=== PATIENT | male | born 1985 | race Caucasian/White ===

== ENCOUNTER 2019-02-27 17:00 | Emergency (ER) | payer MEDICAID, OTHER ==
--- NOTE | 2019-02-27 17:31 | EDM.PDOC ---
ED HPI GENERAL MEDICAL PROBLEM - General Chief Complaint: Chest Pain Stated Complaint: COUGH, CHEST PAIN Time Seen by Provider: 02/27/19 17:10 Source of Information: Reports: Patient History Limitations: Reports: No Limitations - History of Present Illness INITIAL COMMENTS - FREE TEXT/NARRATIVE: HISTORY AND PHYSICAL: History of present illness: He shouldn't is a 33-year-old male presenting to the emergency room for chief complaint of cough. Patient states that one week ago he was sick with some congestion, which has now went into his lower respiratory tract. Patient states that yesterday he started coughing a productive green cough and gets lightheaded during cough attacks. He denies being around anybody who is sick. He reports slight runny nose and shortness of breath. He is a type I diabetic with an insulin pump. He denies current congestion, headache, sore throat, abdominal pain. Patient denies any fever, chills, headache, change in vision, syncope or near syncope. Denies any chest pain or back pain. Denies any abdominal pain, nausea, vomiting, diarrhea, constipation or dysuria. Has not noted any blood in urine or stool. Patient has been eating and drinking appropriately. Review of systems: As per history of present illness and below otherwise all systems reviewed and negative. Past medical history: As per history of present illness and as reviewed below otherwise noncontributory. Surgical history: As per history of present illness and as reviewed below otherwise noncontributory. Social history: See social history for further information Family history: As per history of present illness and as reviewed below otherwise noncontributory. Physical exam: General: She is a well-nourished and well-developed 33-year-old male. Alert and orientated. Nontoxic in appearance and in no acute distress. Vital signs are stable and have been reviewed by me. HEENT: Atraumatic, normocephalic, pupils equal and reactive bilaterally, negative for conjunctival pallor or scleral icterus, mucous membranes moist, TMs normal bilaterally, throat clear, neck supple, nontender, trachea midline. No drooling or trismus noted. No meningeal signs. No hot potato voice noted. Lungs: Bilateral inspiratory and expiratory wheezing, slightly diminished at the bases, chest nontender. Heart: S1S2, regular rate and rhythm without overt murmur Abdomen: Soft, nondistended, nontender. Negative for masses or hepatosplenomegaly. Negative for costovertebral tenderness. Skin: Intact, warm, dry. No lesions or rashes noted. Extremities: Atraumatic, moves all extremities per self without difficulty or deficits, negative for cords or calf pain. Neurovascular unremarkable. Neuro: Awake, alert, oriented. Cranial nerves II through XII unremarkable. Cerebellum unremarkable. Motor and sensory unremarkable throughout. Exam nonfocal. Notes: Lab work is unremarkable. Chest x-ray shows no acute findings. Due to the longevity of his symptoms and physical examination and will treat with Z-Kunal. We discussed monitoring his blood sugars more closely while he is recovering. Supportive care measures were reviewed and discussed. Voices understanding and is agreeable to plan of care. Denies any further questions or concerns at this time. Diagnostics: CBC, CMP, chest x-ray Therapeutics: DuoNeb Prescription: Zpak Impression: Bronchitis Plan: 1. Please use Tylenol and/or Ibuprofen as needed for pain and fever management. 2. Get plenty of Rest. Encourage fluids to prevent dehydration. 3. Please follow up with your primary care provider. Return to the ED as needed as discussed. Definitive disposition and diagnosis as appropriate pending reevaluation and review of above. Chest Pain Score (Numeric/FACES): 2 - Related Data Allergies Allergy/AdvReac Type Severity Reaction Status Date / Time No Known Allergies Allergy Verified 02/27/19 17:29 Home Meds: Home Meds Sertraline [Zoloft] 25 mg PO QAM 03/30/14 [History] Insulin Glarg,Human.Rec.Analog [LantUS Solostar] 3 unit SUBCUT DAILY 05/29/16 [ History] Past Medical History - Past Health History Medical/Surgical History: Denies Medical/Surgical History HEENT History: Reports: None Cardiovascular History: Reports: None Respiratory History: Reports: Asthma Other Respiratory History: childhood asthma Gastrointestinal History: Reports: None Genitourinary History: Reports: None Neurological History: Reports: None Psychiatric History: Reports: None Endocrine/Metabolic History: Reports: Other (See Below) Other Endocrine/Metabolic History: diabetes Dermatologic History: Reports: None - Infectious Disease History Infectious Disease History: Reports: Chicken Pox - Past Surgical History HEENT Surgical History: Reports: None Other Male Surgeries/Procedures: undescended testicle,right Social & Family History - Family History Family Medical History: Noncontributory ED ROS GENERAL - Review of Systems Review Of Systems: ROS reveals no pertinent complaints other than HPI. ED EXAM, GENERAL - Physical Exam Exam: See Below (See dictation) Course - Vital Signs Last Recorded V/S: Last Vital Signs Temp 97.3 F 02/27/19 17:30 Pulse 87 02/27/19 17:30 Resp 15 02/27/19 17:30 BP 110/70 02/27/19 17:30 Pulse Ox 97 02/27/19 17:30 - Orders/Labs/Meds Orders: Active Orders 24 hr Category Date Time Status RT Aerosol Therapy [RC] ASDIRECTED Care 02/27/19 17:36 Active Labs: Laboratory Tests 02/27/19 02/27/19 02/27/19 Range/Units 17:41 17:55 17:55 WBC 10.77 (4.0-11.0) K/uL RBC 5.29 (4.50-5.90) M/uL Hgb 15.9 (13.0-17.0) g/dL Hct 45.5 (38.0-50.0) % MCV 86.0 (80.0-98.0) fL MCH 30.1 (27.0-32.0) pg MCHC 34.9 (31.0-37.0) g/dL RDW Std Deviation 41.1 (28.0-62.0) fl RDW Coeff of Martinez 13 (11.0-15.0) % Plt Count 211 (150-400) K/uL MPV 8.60 (7.40-12.00) fL Neut % (Auto) 78.2 (48.0-80.0) % Lymph % (Auto) 16.0 (16.0-40.0) % [place] % (Auto) 5.1 (0.0-15.0) % Eos % (Auto) 0.5 (0.0-7.0) % Baso % (Auto) 0.2 (0.0-1.5) % Neut # (Auto) 8.4 H (1.4-5.7) K/uL Lymph # (Auto) 1.7 (0.6-2.4) K/uL [place] # (Auto) 0.6 (0.0-0.8) K/uL Eos # (Auto) 0.1 (0.0-0.7) K/uL Baso # (Auto) 0.0 (0.0-0.1) K/uL Nucleated RBC % 0.0 /100WBC Nucleated RBCs # 0 K/uL Sodium 137 (136-148) mmol/L Potassium 3.8 (3.5-5.1) mmol/L Chloride 100 (98-107) mmol/L Carbon Dioxide 27.8 (21.0-32.0) mmol/L BUN 6 L (7.0-18.0) mg/dL Creatinine 0.9 (0.8-1.3) mg/dL Est Cr Clr Drug Dosing 129.71 mL/min Estimated GFR (MDRD) > 60.0 ml/min Glucose 168 H (74-106) mg/dL POC Glucose 156 H (60-110) mg/dL Calcium 8.9 (8.5-10.1) mg/dL Total Bilirubin 0.4 (0.2-1.0) mg/dL AST 13 L (15-37) IU/L ALT 17 (14-63) IU/L Alkaline Phosphatase 59 (46-116) U/L Total Protein 7.3 (6.4-8.2) g/dL Albumin 3.5 (3.4-5.0) g/dL Globulin 3.8 (2.6-4.0) g/dL Albumin/Globulin Ratio 0.9 (0.9-1.6) Meds: Medications Discontinued Medications Generic Name Dose Route Start Last Admin Trade Name Freq PRN Reason Stop Dose Admin Albuterol/Ipratropium 3 ml 02/27/19 17:36 02/27/19 17:50 Duoneb 3.0-0.5 Mg/3 Ml NEB 02/27/19 17:37 3 ml ONETIME ONE Administration Departure - Departure Time of Disposition: 18:44 Disposition: Home, Self-Care 01 Clinical Impression: Bronchitis - Discharge Information Instructions: Upper Respiratory Infection, Adult, [id number] Referrals: PCP,Unknown [Primary Care Provider] - Forms: ED Department Discharge Additional Instructions: The following information is given to patients seen in the emergency department who are being discharged to home. This information is to outline your options for follow-up care. We provide all patients seen in our emergency department with a follow-up referral. The need for follow-up, as well as the timing and circumstances, are variable depending upon the specifics of your emergency department visit. If you don't have a primary care physician on staff, we will provide you with a referral. We always advise you to contact your personal physician following an emergency department visit to inform them of the circumstance of the visit and for follow-up with them and/or the need for any referrals to a consulting specialist. The emergency department will also refer you to a specialist when appropriate. This referral assures that you have the opportunity for follow-up care with a specialist. All of these measure are taken in an effort to provide you with optimal care, which includes your follow-up. Under all circumstances we always encourage you to contact your private physician who remains a resource for coordinating your care. When calling for follow-up care, please make the office aware that this follow-up is from your recent emergency room visit. If for any reason you are refused follow-up, please contact the [facility] Emergency Department at and asked to speak to the emergency department charge nurse. [facility] [address] [place] [address] [place] [address] 1. Please use Tylenol and/or Ibuprofen as needed for pain and fever management. 2. Get plenty of Rest. Encourage fluids to prevent dehydration. 3. Continue to monitor blood sugars routinely. 4. Please follow up with your primary care provider. Return to the ED as needed as discussed. - My Orders Last 24 Hours: My Active Orders 02/27/19 17:36 RT Aerosol Therapy [RC] ASDIRECTED - Assessment/Plan Last 24 Hours: My Active Orders 02/27/19 17:36 RT Aerosol Therapy [RC] ASDIRECTED
[2019-02-27] MEDS ORDERED: Albuterol/Ipratropium 3.0-0.5 MG/3 ML Neb Soln NEB ONE (17:36)
[2019-02-27 18:21] LABS: BLOOD UREA NITROGEN,BUN 6 mg/dL (7.0-18.0); CARBON DIOXIDE,CO2 27.8 mmol/L (21.0-32.0); CHLORIDE,CL 100 mmol/L (98-107); GLUCOSE RANDOM 168 mg/dL (74-106); POTASSIUM,K 3.8 mmol/L (3.5-5.1); SODIUM,NA 137 mmol/L (136-148)
--- NOTE | 2019-02-27 18:34 | CR ---
INDICATION: Two-day history of cough TECHNIQUE: Chest 2 views. COMPARISON: None FINDINGS: Cardiovascular and mediastinum: Heart size and vasculature are normal in caliber and appearance. Mediastinum is within normal limits. Lungs and pleural spaces: Lungs are clear. No sign of infiltrate or mass. No sign of pleural effusion. No pneumothorax. Bones and soft tissues: There is a tiny metallic density within the left anterior chest wall at the level of the lower ribs. IMPRESSION: No sign of acute disease. Dictated by Chari Pendleton MD @ Feb 27 2019 6:33PM Signed by Dr. Chari Pendleton @ Feb 27 2019 6:33PM
[2019-02-27 18:54] VITALS: BP 105/68; PULSE 95
== END 2019-02-27 18:54 | disposition home or self-care (01) ==
LOC: MW.ED 17:00
DX: J40 Bronchitis, not specified as acute or chronic (principal); E11.9 Type 2 diabetes mellitus without complications; Z79.4 Long term (current) use of insulin
CPT/HCPCS: 71046; 71046-26; 80053; 82962; 85025; 94640; 99283; 99284-25; J7620-GY

== ENCOUNTER 2019-03-09 13:13 | Emergency (ER) | payer SELFPAY ==
--- NOTE | 2019-03-09 13:30 | EDM.PDOC ---
ED HPI GENERAL MEDICAL PROBLEM - General Chief Complaint: Diabetic Complaint Stated Complaint: LOW BLOOD SUGAR Time Seen by Provider: 03/09/19 13:27 - History of Present Illness INITIAL COMMENTS - FREE TEXT/NARRATIVE: HISTORY AND PHYSICAL: History of present illness: Patient 33-year-old white male with history of diabetes or presents with a concern of elevated blood sugar generalized weakness he also has history of anxiety he states his blood sugars been running 250-300 including as recently as this a.m. in spite of adjustments made as been no fever chills nausea vomiting or other complaints Review of systems: As per history of present illness and below otherwise all systems reviewed and negative. Past medical history: As per history of present illness and as reviewed below otherwise noncontributory. Surgical history: As per history of present illness and as reviewed below otherwise noncontributory. Social history: No reported history of drug or alcohol abuse. Family history: As per history of present illness and as reviewed below otherwise noncontributory. Physical exam: HEENT: Atraumatic, normocephalic, pupils reactive, negative for conjunctival pallor or scleral icterus, mucous membranes dry, throat clear, neck supple, nontender, trachea midline. Lungs: Clear to auscultation, breath sounds equal bilaterally, chest nontender. Heart: S1S2, regular, negative for clicks, rubs, or JVD. Abdomen: Soft, nondistended, nontender. Negative for masses or hepatosplenomegaly. Negative for costovertebral tenderness. Pelvis: Stable nontender. Genitourinary: Deferred. Rectal: Deferred. Extremities: Atraumatic, negative for cords or calf pain. Neurovascular unremarkable. Neuro: Awake, alert, oriented. Cranial nerves II through XII unremarkable. Cerebellum unremarkable. Motor and sensory unremarkable throughout. Exam nonfocal. Diagnostics: CBC CMP ABG UA EKG chest x-ray Therapeutics: Saline 1 L bolus Impression: #1 hyperglycemia #2 history of type 1 diabetes #3 dehydration #4 generalized weakness Definitive disposition and diagnosis as appropriate pending reevaluation and review of above. chest/back Pain Score (Numeric/FACES): 3 - Related Data Allergies Allergy/AdvReac Type Severity Reaction Status Date / Time No Known Allergies Allergy Verified 03/09/19 13:21 Home Meds: Home Meds Sertraline [Zoloft] 25 mg PO QAM 03/30/14 [History] Insulin Aspart [NovoLOG] 1 unit INJECT ASDIRECTED 03/09/19 [History] LORazepam 0.5 mg PO TID 03/09/19 [History] Past Medical History - Past Health History Medical/Surgical History: Denies Medical/Surgical History HEENT History: Reports: None Cardiovascular History: Reports: None Respiratory History: Reports: Asthma Other Respiratory History: childhood asthma Gastrointestinal History: Reports: None Genitourinary History: Reports: None Musculoskeletal History: Reports: None Neurological History: Reports: None Psychiatric History: Reports: None Endocrine/Metabolic History: Reports: Diabetes, Type I Other Endocrine/Metabolic History: diabetes Insulin Pump Model and Dining Room Manager: Spor [id number] Hematologic History: Reports: None Immunologic History: Reports: None Oncologic (Cancer) History: Reports: None Dermatologic History: Reports: None - Infectious Disease History Infectious Disease History: Reports: Chicken Pox - Past Surgical History Head Surgeries/Procedures: Reports: None HEENT Surgical History: Reports: None Cardiovascular Surgical History: Reports: None Respiratory Surgical History: Reports: None GI Surgical History: Reports: None Male Surgical History: Reports: Other (See Below) Other Male Surgeries/Procedures: undescended testicle,right Endocrine Surgical History: Reports: None Neurological Surgical History: Reports: None Musculoskeletal Surgical History: Reports: None Oncologic Surgical History: Reports: None Dermatological Surgical History: Reports: None Social & Family History - Family History Family Medical History: Noncontributory - Tobacco Use Smoking Status *Q: Current Every Day Smoker Years of Tobacco use: 20 Packs/Tins Daily: 0.5 - Caffeine Use Caffeine Use: Reports: None - Recreational Drug Use Recreational Drug Use: No ED ROS GENERAL - Review of Systems Review Of Systems: ROS reveals no pertinent complaints other than HPI. ED EXAM GENERAL NO PERIP PULSE - Physical Exam Exam: See Below (See dictation) Course - Vital Signs Last Recorded V/S: Last Vital Signs Temp 35.4 C 03/09/19 13:19 Pulse 101 H 03/09/19 13:19 Resp 18 03/09/19 13:19 BP 119/93 H 03/09/19 13:19 Pulse Ox 93 L 03/09/19 13:19 - Orders/Labs/Meds Orders: Active Orders 24 hr Category Date Time Status EKG Documentation Completion [RC] STAT Care 03/09/19 13:31 Active Sodium Chloride 0.9% [Normal Saline] 1,000 ml Med 03/09/19 13:31 Active IV STAT Medication Orders Sodium Chloride (Normal Saline) 1,000 mls @ 999 mls/hr IV STAT ONE Stop: 03/09/19 14:31 Last Admin: 03/09/19 13:47 Dose: 999 mls/hr Labs: Laboratory Tests 03/09/19 03/09/19 03/09/19 Range/Units 13:35 13:35 13:40 WBC 11.88 H (4.0-11.0) K/uL RBC 5.57 (4.50-5.90) M/uL Hgb 16.6 (13.0-17.0) g/dL Hct 48.4 (38.0-50.0) % MCV 86.9 (80.0-98.0) fL MCH 29.8 (27.0-32.0) pg MCHC 34.3 (31.0-37.0) g/dL RDW Std Deviation 41.4 (28.0-62.0) fl RDW Coeff of Martinez 13 (11.0-15.0) % Plt Count 207 (150-400) K/uL MPV 9.00 (7.40-12.00) fL Neut % (Auto) 81.6 H (48.0-80.0) % Lymph % (Auto) 12.6 L (16.0-40.0) % [place] % (Auto) 5.1 (0.0-15.0) % Eos % (Auto) 0.4 (0.0-7.0) % Baso % (Auto) 0.3 (0.0-1.5) % Neut # (Auto) 9.7 H (1.4-5.7) K/uL Lymph # (Auto) 1.5 (0.6-2.4) K/uL [place] # (Auto) 0.6 (0.0-0.8) K/uL Eos # (Auto) 0.1 (0.0-0.7) K/uL Baso # (Auto) 0.0 (0.0-0.1) K/uL Nucleated RBC % 0.0 /100WBC Nucleated RBCs # 0 K/uL ABG pH 7.389 (7.35-7.45) ABG pCO2 37 (35-45) mmHG ABG pO2 76 (75-100) mmHG ABG HCO3 22 (22-26) mEq/L ABG Total CO2 19.4 ABG Base Excess -2.2 L (-2.0-2.0) Sodium 137 (136-148) mmol/L Potassium 4.2 (3.5-5.1) mmol/L Chloride 98 (98-107) mmol/L Carbon Dioxide 25.0 (21.0-32.0) mmol/L BUN 15 (7.0-18.0) mg/dL Creatinine 1.0 (0.8-1.3) mg/dL Est Cr Clr Drug Dosing 117.48 mL/min Estimated GFR (MDRD) > 60.0 ml/min Glucose 317 H (74-106) mg/dL Calcium 9.5 (8.5-10.1) mg/dL Total Bilirubin 0.9 (0.2-1.0) mg/dL AST 11 L (15-37) IU/L ALT 16 (14-63) IU/L Alkaline Phosphatase 74 (46-116) U/L Total Protein 8.3 H (6.4-8.2) g/dL Albumin 4.0 (3.4-5.0) g/dL Globulin 4.3 H (2.6-4.0) g/dL Albumin/Globulin Ratio 0.9 (0.9-1.6) Urine Color Urine Appearance Urine pH (5.0-8.0) Ur Specific [place] (1.001-1.035) Urine Protein (NEGATIVE) mg/dL Urine Glucose (UA) (NEGATIVE) mg/dL Urine Ketones (NEGATIVE) mg/dL Urine Occult Blood (NEGATIVE) Urine Nitrite (NEGATIVE) Urine Bilirubin (NEGATIVE) Urine Urobilinogen (<2.0) EU/dL Ur Leukocyte Esterase (NEGATIVE) 03/09/19 Range/Units 13:54 WBC (4.0-11.0) K/uL RBC (4.50-5.90) M/uL Hgb (13.0-17.0) g/dL Hct (38.0-50.0) % MCV (80.0-98.0) fL MCH (27.0-32.0) pg MCHC (31.0-37.0) g/dL RDW Std Deviation (28.0-62.0) fl RDW Coeff of Martinez (11.0-15.0) % Plt Count (150-400) K/uL MPV (7.40-12.00) fL Neut % (Auto) (48.0-80.0) % Lymph % (Auto) (16.0-40.0) % [place] % (Auto) (0.0-15.0) % Eos % (Auto) (0.0-7.0) % Baso % (Auto) (0.0-1.5) % Neut # (Auto) (1.4-5.7) K/uL Lymph # (Auto) (0.6-2.4) K/uL [place] # (Auto) (0.0-0.8) K/uL Eos # (Auto) (0.0-0.7) K/uL Baso # (Auto) (0.0-0.1) K/uL Nucleated RBC % /100WBC Nucleated RBCs # K/uL ABG pH (7.35-7.45) ABG pCO2 (35-45) mmHG ABG pO2 (75-100) mmHG ABG HCO3 (22-26) mEq/L ABG Total CO2 ABG Base Excess (-2.0-2.0) Sodium (136-148) mmol/L Potassium (3.5-5.1) mmol/L Chloride (98-107) mmol/L Carbon Dioxide (21.0-32.0) mmol/L BUN (7.0-18.0) mg/dL Creatinine (0.8-1.3) mg/dL Est Cr Clr Drug Dosing mL/min Estimated GFR (MDRD) ml/min Glucose (74-106) mg/dL Calcium (8.5-10.1) mg/dL Total Bilirubin (0.2-1.0) mg/dL AST (15-37) IU/L ALT (14-63) IU/L Alkaline Phosphatase (46-116) U/L Total Protein (6.4-8.2) g/dL Albumin (3.4-5.0) g/dL Globulin (2.6-4.0) g/dL Albumin/Globulin Ratio (0.9-1.6) Urine Color YELLOW Urine Appearance CLEAR Urine pH 6.0 (5.0-8.0) Ur Specific [place] 1.015 (1.001-1.035) Urine Protein NEGATIVE (NEGATIVE) mg/dL Urine Glucose (UA) >=1000 (NEGATIVE) mg/dL Urine Ketones >=80 (NEGATIVE) mg/dL Urine Occult Blood NEGATIVE (NEGATIVE) Urine Nitrite NEGATIVE (NEGATIVE) Urine Bilirubin NEGATIVE (NEGATIVE) Urine Urobilinogen 0.2 (<2.0) EU/dL Ur Leukocyte Esterase NEGATIVE (NEGATIVE) Meds: Medications Generic Name Dose Route Start Last Admin Trade Name Freq PRN Reason Stop Dose Admin Sodium Chloride 1,000 mls @ 999 mls/hr 03/09/19 13:31 03/09/19 13:47 Normal Saline IV 03/09/19 14:31 999 mls/hr STAT ONE Administration Departure - Departure Time of Disposition: 14:27 Disposition: Home, Self-Care 01 Condition: Good Clinical Impression: Encounter for medical screening examination, Diabetes, Pneumonia - Discharge Information Referrals: PCP,Unknown [Primary Care Provider] - Forms: ED Department Discharge Additional Instructions: The following information is given to patients seen in the emergency department who are being discharged to home. This information is to outline your options for follow-up care. We provide all patients seen in our emergency department with a follow-up referral. The need for follow-up, as well as the timing and circumstances, are variable depending upon the specifics of your emergency department visit. If you don't have a primary care physician on staff, we will provide you with a referral. We always advise you to contact your personal physician following an emergency department visit to inform them of the circumstance of the visit and for follow-up with them and/or the need for any referrals to a consulting specialist. The emergency department will also refer you to a specialist when appropriate. This referral assures that you have the opportunity for followup care with a specialist. All of these measure are taken in an effort to provide you with optimal care, which includes your followup. Under all circumstances we always encourage you to contact your private physician who remains a resource for coordinating your care. When calling for followup care, please make the office aware that this follow-up is from your recent emergency room visit. If for any reason you are refused follow-up, please contact the [facility] emergency department at and asked to speak to the emergency department charge nurse. Augmentin as prescribed monitor blood sugars discussed diet as discussed follow- up primary medical doctor and return as needed as discussed - My Orders Last 24 Hours: My Active Orders 03/09/19 13:31 EKG Documentation Completion [RC] STAT Sodium Chloride 0.9% [Normal Saline] 1,000 ml IV STAT - Assessment/Plan Last 24 Hours: My Active Orders 03/09/19 13:31 EKG Documentation Completion [RC] STAT Sodium Chloride 0.9% [Normal Saline] 1,000 ml IV STAT
[2019-03-09] MEDS ORDERED: Sodium Chloride 0.9% 1,000 ML IV ONE (13:31)
[2019-03-09 14:18] LABS: BLOOD UREA NITROGEN,BUN 15 mg/dL (7.0-18.0); CHLORIDE,CL 98 mmol/L (98-107); GLUCOSE RANDOM 317 mg/dL (74-106); POTASSIUM,K 4.2 mmol/L (3.5-5.1); SODIUM,NA 137 mmol/L (136-148)
--- NOTE | 2019-03-09 14:20 | CR ---
Chest: Frontal view of the chest was obtained. Comparison: Prior chest x-ray of 02/27/19. Small metallic foreign body is projected within the anterior left chest wall. This is stable from prior chest x-ray. Heart size and mediastinum are normal. Slight parenchymal change is noted within the left base. Bony structures are grossly intact. Impression: 1. Slight parenchymal change within the left base. Small area of pneumonia is possible if patient has infectious symptoms. 2. Stable foreign body within the anterior left chest wall. 3. No additional abnormality is identified. Diagnostic code #3 MTDD
[2019-03-09] MEDS ORDERED: cefTRIAXone 1 GM in Premix Bag 1 BAG IV ONE (14:31)
[2019-03-09 15:49] VITALS: BP 110/71; PULSE 65
== END 2019-03-09 15:49 | disposition home or self-care (01) ==
LOC: MW.ED 13:13
DX: E10.65 Type 1 diabetes mellitus with hyperglycemia (principal); J18.9 Pneumonia, unspecified organism; E86.0 Dehydration; F17.210 Nicotine dependence, cigarettes, uncomplicated; Z79.4 Long term (current) use of insulin; Z79.899 Other long term (current) drug therapy
CPT/HCPCS: 36415; 36600; 71045; 80053; 81003; 82803; 82962; 85025; 93005; 96361; 96365; 99285; J0696; J7040; 99284

== ENCOUNTER 2019-04-22 09:51 | Emergency (ER) | payer OTHER ==
[2019-04-22] MEDS ORDERED: Albuterol/Ipratropium 3.0-0.5 MG/3 ML Neb Soln NEB ONE (10:12)
--- NOTE | 2019-04-22 10:28 | EDM.PDOC ---
ED HPI GENERAL MEDICAL PROBLEM - General Chief Complaint: Respiratory Problem Stated Complaint: TROUBLE BREATHING Time Seen by Provider: 04/22/19 09:53 Source of Information: Reports: Patient History Limitations: Reports: No Limitations - History of Present Illness INITIAL COMMENTS - FREE TEXT/NARRATIVE: HISTORY AND PHYSICAL: History of present illness: Patient is a 33-year-old male who presents to the ED today with concern of "burning in his lungs" from coughing and generalized body aches since this morning. Patient states he has not taken anything for his symptoms. Patient does seek does smoke about half pack of cigarettes a day and has so for several years. Patient states that he has a history of type 1 diabetes and has been swollen pump but states that his sugars have been "normal for him. Patient denies any other symptoms or concerns at this time. Patient denies fever, chills, chest pain, shortness of breath. Denies headache, neck stiff ness, change in vision, syncope, or near syncope. Denies nausea, vomiting, abdominal pain, diarrhea, constipation, or dysuria. Has not noted any blood in urine or stool. Patient has been eating and drinking appropriately. Review of systems: As per history of present illness and below otherwise all systems reviewed and negative. Past medical history: As per history of present illness and as reviewed below otherwise noncontributory. Surgical history: As per history of present illness and as reviewed below otherwise noncontributory. Social history: See social history for further information Family history: As per history of present illness and as reviewed below otherwise noncontributory. Physical exam: General: Patient is alert, oriented, and in no acute distress. Patient sitting comfortably on exam table. HEENT: Atraumatic, normocephalic, pupils equal and reactive bilaterally, negative for conjunctival pallor or scleral icterus, mucous membranes moist, TMs normal bilaterally, throat clear, neck supple, nontender, trachea midline. No drooling or trismus noted. No meningeal signs. No hot potato voice noted. Lungs: Mild wheezing to auscultation to bilateral lung bases, breath sounds equal bilaterally, chest nontender. Heart: S1S2, regular rate and rhythm without overt murmur Abdomen: Soft, nondistended, nontender. Negative for masses or hepatosplenomegaly. Negative for costovertebral tenderness. Pelvis: Stable nontender. Genitourinary: Deferred. Rectal: Deferred. Skin: Intact, warm, dry. No lesions or rashes noted. Extremities: Atraumatic, negative for cords or calf pain. Neurovascular unremarkable. Neuro: Awake, alert, oriented. Cranial nerves II through XII unremarkable. Cerebellum unremarkable. Motor and sensory unremarkable throughout. Exam nonfocal. Notes: Discussed the importance for follow-up with primary care provider. Voices understanding and is agreeable to plan of care. Denies any further questions or concerns at this time. Diagnostics: CBC, CMP, UA, EKG, chest x-ray, influenza, bedside glucose Therapeutics: Duoneb Prescription: Medrol dose pack, Proair Impression: Tracheobronchitis H/O T1DM Plan: 1. Take medication as prescribed. You can alternate ibuprofen and Tylenol as directed for pain and discomfort. 2. Follow-up with your primary care provider as discussed. Return to the ED as needed and as discussed. Definitive disposition and diagnosis as appropriate pending reevaluation and review of above. Chest/Lung Pain Score (Numeric/FACES): 8 - Related Data Allergies Allergy/AdvReac Type Severity Reaction Status Date / Time No Known Allergies Allergy Verified 04/22/19 10:03 Home Meds: Home Meds Sertraline [Zoloft] 100 mg PO DAILY 03/30/14 [History] Insulin Aspart [NovoLOG] 1 unit INJECT ASDIRECTED 03/09/19 [History] LORazepam 0.5 mg PO ASDIRECTED 03/09/19 [History] Past Medical History - Past Health History Medical/Surgical History: Denies Medical/Surgical History HEENT History: Reports: None Cardiovascular History: Reports: None Respiratory History: Reports: Asthma Other Respiratory History: childhood asthma Gastrointestinal History: Reports: None Genitourinary History: Reports: None Musculoskeletal History: Reports: None Neurological History: Reports: None Psychiatric History: Reports: None Endocrine/Metabolic History: Reports: Diabetes, Type I Other Endocrine/Metabolic History: diabetes 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[employer] Hematologic History: Reports: None Immunologic History: Reports: None Oncologic (Cancer) History: Reports: None Dermatologic History: Reports: None - Infectious Disease History Infectious Disease History: Reports: Chicken Pox - Past Surgical History Head Surgeries/Procedures: Reports: None HEENT Surgical History: Reports: None Cardiovascular Surgical History: Reports: None Respiratory Surgical History: Reports: None GI Surgical History: Reports: None Male Surgical History: Reports: Other (See Below) Other Male Surgeries/Procedures: undescended testicle,right Endocrine Surgical History: Reports: None Neurological Surgical History: Reports: None Musculoskeletal Surgical History: Reports: None Oncologic Surgical History: Reports: None Dermatological Surgical History: Reports: None Social & Family History - Family History Family Medical History: Noncontributory - Tobacco Use Smoking Status *Q: Current Every Day Smoker Years of Tobacco use: 21 Packs/Tins Daily: 1 - Caffeine Use Caffeine Use: Reports: None - Recreational Drug Use Recreational Drug Use: No ED ROS GENERAL - Review of Systems Review Of Systems: Comprehensive ROS is negative, except as noted in HPI. ED EXAM, GENERAL - Physical Exam Exam: See Below (see dictation) Course - Vital Signs Last Recorded V/S: Last Vital Signs Temp 96.4 F 04/22/19 10:01 Pulse 63 04/22/19 10:01 Resp 16 04/22/19 10:01 BP 113/70 04/22/19 10:01 Pulse Ox 98 04/22/19 10:01 - Orders/Labs/Meds Orders: Active Orders 24 hr Category Date Time Status EKG Documentation Completion [RC] STAT Care 04/22/19 10:11 Active Glucose [Blood Glucose Check, Bedside] [RC] ONETIME Care 04/22/19 10:12 Active RT Aerosol Therapy [RC] ASDIRECTED Care 04/22/19 10:12 Active UA RFX YESSICA AND CULT IF INDIC [URIN] Stat Lab 04/22/19 10:11 Ordered Labs: Laboratory Tests 04/22/19 04/22/19 04/22/19 Range/Units 10:41 10:42 10:42 WBC 4.74 (4.0-11.0) K/uL RBC 5.16 (4.50-5.90) M/uL Hgb 15.0 (13.0-17.0) g/dL Hct 44.2 (38.0-50.0) % MCV 85.7 (80.0-98.0) fL MCH 29.1 (27.0-32.0) pg MCHC 33.9 (31.0-37.0) g/dL RDW Std Deviation 40.3 (28.0-62.0) fl RDW Coeff of [place] 13 (11.0-15.0) % Plt Count 170 (150-400) K/uL MPV 9.00 (7.40-12.00) fL Neut % (Auto) 47.3 L (48.0-80.0) % Lymph % (Auto) 38.6 (16.0-40.0) % [place] % (Auto) 11.4 (0.0-15.0) % Eos % (Auto) 1.9 (0.0-7.0) % Baso % (Auto) 0.8 (0.0-1.5) % Neut # (Auto) 2.2 (1.4-5.7) K/uL Lymph # (Auto) 1.8 (0.6-2.4) K/uL [place] # (Auto) 0.5 (0.0-0.8) K/uL Eos # (Auto) 0.1 (0.0-0.7) K/uL Baso # (Auto) 0.0 (0.0-0.1) K/uL Nucleated RBC % 0.0 /100WBC Nucleated RBCs # 0 K/uL Sodium 136 (136-148) mmol/L Potassium 3.9 (3.5-5.1) mmol/L Chloride 101 (98-107) mmol/L Carbon Dioxide 28.2 (21.0-32.0) mmol/L BUN 9 (7.0-18.0) mg/dL Creatinine 0.9 (0.8-1.3) mg/dL Est Cr Clr Drug Dosing 130.53 mL/min Estimated GFR (MDRD) > 60.0 ml/min Glucose 278 H (74-106) mg/dL POC Glucose 259 H (60-110) mg/dL Calcium 8.9 (8.5-10.1) mg/dL Total Bilirubin 0.4 (0.2-1.0) mg/dL AST 18 (15-37) IU/L ALT 28 (14-63) IU/L Alkaline Phosphatase 51 (46-116) U/L Total Protein 7.4 (6.4-8.2) g/dL Albumin 3.8 (3.4-5.0) g/dL Globulin 3.6 (2.6-4.0) g/dL Albumin/Globulin Ratio 1.1 (0.9-1.6) Meds: Medications Discontinued Medications Generic Name Dose Route Start Last Admin Trade Name Radha PRN Reason Stop Dose Admin Albuterol/Ipratropium 3 ml 04/22/19 10:12 04/22/19 10:17 Duoneb 3.0-0.5 Mg/3 Ml NEB 04/22/19 10:13 3 ml ONETIME ONE Administration Departure - Departure Time of Disposition: 11:44 Disposition: Home, Self-Care 01 Clinical Impression: Tracheobronchitis - Discharge Information Referrals: Hilda Vance STATE EDITOR [Primary Care Provider] - Forms: ED Department Discharge Additional Instructions: The following information is given to patients seen in the emergency department who are being discharged to home. This information is to outline your options for follow-up care. We provide all patients seen in our emergency department with a follow-up referral. The need for follow-up, as well as the timing and circumstances, are variable depending upon the specifics of your emergency department visit. If you don't have a primary care physician on staff, we will provide you with a referral. We always advise you to contact your personal physician following an emergency department visit to inform them of the circumstance of the visit and for follow-up with them and/or the need for any referrals to a consulting specialist. The emergency department will also refer you to a specialist when appropriate. This referral assures that you have the opportunity for follow-up care with a specialist. All of these measure are taken in an effort to provide you with optimal care, which includes your follow-up. Under all circumstances we always encourage you to contact your private physician who remains a resource for coordinating your care. When calling for follow-up care, please make the office aware that this follow-up is from your recent emergency room visit. If for any reason you are refused follow-up, please contact the [facility] Emergency Department at and asked to speak to the emergency department charge nurse. [facility] [address] [place] [id number] [address] [id number] 1. Take medication as prescribed. You can alternate ibuprofen and Tylenol as directed for pain and discomfort. 2. Follow-up with your primary care provider as discussed. Return to the ED as needed and as discussed. - My Orders Last 24 Hours: My Active Orders 04/22/19 10:11 EKG Documentation Completion [RC] STAT UA RFX YESSICA AND CULT IF INDIC [URIN] Stat 04/22/19 10:12 Glucose [Blood Glucose Check, Bedside] [RC] ONETIME RT Aerosol Therapy [RC] ASDIRECTED - Assessment/Plan Last 24 Hours: My Active Orders 04/22/19 10:11 EKG Documentation Completion [RC] STAT UA RFX YESSICA AND CULT IF INDIC [URIN] Stat 04/22/19 10:12 Glucose [Blood Glucose Check, Bedside] [RC] ONETIME RT Aerosol Therapy [RC] ASDIRECTED
--- NOTE | 2019-04-22 10:49 | CR ---
EXAM DATE: 04/22/19 PATIENT'S AGE: 33 Chest: Two views of the chest were obtained. Comparison: Prior chest x-ray 03/09/19. Heart size and mediastinum are normal. Lungs are clear. Bony structures are unremarkable for the patient's age. Impression: 1. Nothing acute is seen on two view chest x-ray. Diagnostic code #1 This report was dictated in [place] Standard Time Report Signed by Proxy. [facility]
[2019-04-22 11:12] LABS: BLOOD UREA NITROGEN,BUN 9 mg/dL (7.0-18.0); CARBON DIOXIDE,CO2 28.2 mmol/L (21.0-32.0); CHLORIDE,CL 101 mmol/L (98-107); GLUCOSE RANDOM 278 mg/dL (74-106); POTASSIUM,K 3.9 mmol/L (3.5-5.1); SODIUM,NA 136 mmol/L (136-148)
[2019-04-22 12:00] VITALS: BP 137/68; PULSE 71
== END 2019-04-22 12:01 | disposition home or self-care (01) ==
LOC: MW.ED 09:51
DX: J40 Bronchitis, not specified as acute or chronic (principal); E10.9 Type 1 diabetes mellitus without complications; F17.210 Nicotine dependence, cigarettes, uncomplicated; Z79.4 Long term (current) use of insulin
CPT/HCPCS: 36415; 71046; 71046-26; 80053; 82962; 85025; 87804; 93005; 94640; 99284-25; J7620-GY

== ENCOUNTER 2019-04-28 00:22 | Emergency (ER) | payer MEDICAID ==
--- NOTE | 2019-04-28 00:44 | EDM.PDOC ---
ED HPI GENERAL MEDICAL PROBLEM - General Chief Complaint: Behavioral/Psych Stated Complaint: MENTAL ISSUES Time Seen by Provider: 04/28/19 00:38 - History of Present Illness INITIAL COMMENTS - FREE TEXT/NARRATIVE: HISTORY AND PHYSICAL: History of present illness: Patient 33-year-old white male presents with a concern of medication refill he states he has a scheduled appointment Saturday with his doctor Review of systems: As per history of present illness and below otherwise all systems reviewed and negative. Past medical history: As per history of present illness and as reviewed below otherwise noncontributory. Surgical history: As per history of present illness and as reviewed below otherwise noncontributory. Social history: No reported history of drug or alcohol abuse. Family history: As per history of present illness and as reviewed below otherwise noncontributory. Physical exam: HEENT: Atraumatic, normocephalic, pupils reactive, negative for conjunctival pallor or scleral icterus, mucous membranes moist, throat clear, neck supple, nontender, trachea midline. Lungs: Clear to auscultation, breath sounds equal bilaterally, chest nontender. Heart: S1S2, regular, negative for clicks, rubs, or JVD. Abdomen: Soft, nondistended, nontender. Negative for masses or hepatosplenomegaly. Negative for costovertebral tenderness. Pelvis: Stable nontender. Genitourinary: Deferred. Rectal: Deferred. Extremities: Atraumatic, negative for cords or calf pain. Neurovascular unremarkable. Neuro: Awake, alert, oriented. Cranial nerves II through XII unremarkable. Cerebellum unremarkable. Motor and sensory unremarkable throughout. Exam nonfocal. Diagnostics: None Therapeutics: Zoloft 200 mg by mouth Impression: #1 medication refill #2 history of anxiety/depression Definitive disposition and diagnosis as appropriate pending reevaluation and review of above. no pain Pain Score (Numeric/FACES): 0 - Related Data Allergies Allergy/AdvReac Type Severity Reaction Status Date / Time No Known Allergies Allergy Verified 04/24/19 00:18 Home Meds: Home Meds Sertraline [Zoloft] 200 mg PO DAILY 03/30/14 [History] Insulin Aspart [NovoLOG] 1 unit INJECT ASDIRECTED 03/09/19 [History] LORazepam 0.5 mg PO TID PRN 03/09/19 [History] Albuterol Sulfate [Proair Hfa] 8.5 gm IH Q8HR PRN #1 [email or web address] 04/22/19 [Rx] Past Medical History - Past Health History Medical/Surgical History: Denies Medical/Surgical History HEENT History: Reports: None Cardiovascular History: Reports: None Respiratory History: Reports: Asthma Other Respiratory History: childhood asthma Gastrointestinal History: Reports: None Genitourinary History: Reports: None Musculoskeletal History: Reports: None Neurological History: Reports: None Psychiatric History: Reports: Anxiety Endocrine/Metabolic History: Reports: Diabetes, Type I Other Endocrine/Metabolic History: on insulin pump 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 Hematologic History: Reports: None Immunologic History: Reports: None Oncologic (Cancer) History: Reports: None Dermatologic History: Reports: None - Infectious Disease History Infectious Disease History: Reports: Chicken Pox - Past Surgical History Head Surgeries/Procedures: Reports: None HEENT Surgical History: Reports: None Cardiovascular Surgical History: Reports: None Respiratory Surgical History: Reports: None GI Surgical History: Reports: None Male Surgical History: Reports: Other (See Below) Other Male Surgeries/Procedures: undescended testicle,right Endocrine Surgical History: Reports: None Neurological Surgical History: Reports: None Musculoskeletal Surgical History: Reports: None Oncologic Surgical History: Reports: None Dermatological Surgical History: Reports: None Social & Family History - Family History Family Medical History: Noncontributory - Tobacco Use Smoking Status *Q: Current Every Day Smoker Years of Tobacco use: 21 Packs/Tins Daily: 0.5 - Caffeine Use Caffeine Use: Reports: None - Recreational Drug Use Recreational Drug Use: No ED ROS GENERAL - Review of Systems Review Of Systems: Comprehensive ROS is negative, except as noted in HPI. ED EXAM, GENERAL - Physical Exam Exam: See Below (See dictation) Course - Vital Signs Last Recorded V/S: Last Vital Signs Temp 35.9 C 04/28/19 00:30 Pulse 65 04/28/19 00:30 Resp 18 04/28/19 00:30 BP 115/70 04/28/19 00:30 Pulse Ox 97 04/28/19 00:30 Departure - Departure Time of Disposition: 00:43 Disposition: Home, Self-Care 01 Condition: Good Clinical Impression: Medication refill, History of depression, History of anxiety - Discharge Information Referrals: PCP,Not In Area [Primary Care Provider] - Additional Instructions: The following information is given to patients seen in the emergency department who are being discharged to home. This information is to outline your options for follow-up care. We provide all patients seen in our emergency department with a follow-up referral. The need for follow-up, as well as the timing and circumstances, are variable depending upon the specifics of your emergency department visit. If you don't have a primary care physician on staff, we will provide you with a referral. We always advise you to contact your personal physician following an emergency department visit to inform them of the circumstance of the visit and for follow-up with them and/or the need for any referrals to a consulting specialist. The emergency department will also refer you to a specialist when appropriate. This referral assures that you have the opportunity for followup care with a specialist. All of these measure are taken in an effort to provide you with optimal care, which includes your followup. Under all circumstances we always encourage you to contact your private physician who remains a resource for coordinating your care. When calling for followup care, please make the office aware that this follow-up is from your recent emergency room visit. If for any reason you are refused follow-up, please contact the [facility] emergency department at and asked to speak to the emergency department charge nurse. Follow-up as scheduled with appointment on Saturday Zoloft as prescribed return as needed as discussed
[2019-04-28] MEDS ORDERED: Sertraline 100 MG Tab PO STA (00:46)
[2019-04-28 00:58] VITALS: BP 119/65; PULSE 73
== END 2019-04-28 00:59 | disposition home or self-care (01) ==
LOC: MW.ED 00:22
DX: Z76.0 Encounter for issue of repeat prescription (principal); F41.9 Anxiety disorder, unspecified; F32.9 Major depressive disorder, single episode, unspecified; E10.9 Type 1 diabetes mellitus without complications; J45.909 Unspecified asthma, uncomplicated; F17.210 Nicotine dependence, cigarettes, uncomplicated; Z79.899 Other long term (current) drug therapy
CPT/HCPCS: 99281; A9270

== ENCOUNTER 2019-07-07 17:40 | Emergency (ER) | payer MEDICAID ==
--- NOTE | 2019-07-07 18:21 | EDM.PDOC ---
ED HPI GENERAL MEDICAL PROBLEM - General Chief Complaint: General Stated Complaint: BLOOD SUGAR LEVELS, PAIN IN JAWLINE Time Seen by Provider: 07/07/19 18:21 Source of Information: Reports: Patient History Limitations: Reports: No Limitations - History of Present Illness INITIAL COMMENTS - FREE TEXT/NARRATIVE: HISTORY AND PHYSICAL: History of present illness: Patient is a 34-year-old male with history of diabetes presents to the ED with complaint of jaw/dental pain. He states he has pain to the right upper jaw for the past 3 days. He has an appointment with a dentist in 1 week to have his teeth pulled in 1 week. He denies fevers or chills. Review of systems: As per history of present illness and below otherwise all systems reviewed and negative. Past medical history: As per history of present illness and as reviewed below otherwise noncontributory. Surgical history: As per history of present illness and as reviewed below otherwise noncontributory. Social history: No reported history of drug or alcohol abuse. Family history: As per history of present illness and as reviewed below otherwise noncontributory. Physical exam: General: Patient sitting comfortably in no acute distress and nontoxic appearing HEENT: Poor dentition throughout. Cavity to the right upper back molar with surrounding erythema and gum swelling. Atraumatic, normocephalic, pupils reactive, negative for conjunctival pallor or scleral icterus, mucous membranes moist, throat clear, neck supple, nontender, trachea midline. No meningeal signs. Lungs: Clear to auscultation, breath sounds equal bilaterally, chest nontender. Heart: S1S2, regular, negative for clicks, rubs, or overt murmur. Abdomen: Soft, nondistended, nontender. Negative for masses or hepatosplenomegaly. Negative for costovertebral tenderness. No rigidity, rebound , guarding. Pelvis: Stable nontender. Genitourinary: Deferred. Rectal: Deferred. Extremities: Atraumatic, negative for cords or calf pain. Neurovascular unremarkable. Neuro: Awake, alert, oriented. Cranial nerves II through XII unremarkable. Cerebellum unremarkable. Motor and sensory unremarkable throughout. Exam nonfocal. Notes: Diagnostics: none Therapeutics: Dental balls Prescriptions: Augmentin Impression: Dental infection, dentalgia Plan: Take antibiotic as instructed Use dental balls and alternate Tylenol and ibuprofen as needed for pain. Follow-up with dentist Return to ED as needed discussed Definitive disposition and diagnosis as appropriate pending reevaluation and review of above. dental, jaw Pain Score (Numeric/FACES): 10 - Related Data Allergies Allergy/AdvReac Type Severity Reaction Status Date / Time No Known Allergies Allergy Verified 07/07/19 18:09 Home Meds: Home Meds Sertraline [Zoloft] 200 mg PO DAILY 03/30/14 [History] Insulin Aspart [NovoLOG] 1 unit INJECT ASDIRECTED 03/09/19 [History] Albuterol Sulfate [Proair Hfa] 8.5 gm IH Q8HR PRN #1 [email or web address] 04/22/19 [Rx] Amoxicillin/Potassium Clav [Augmentin 875-125 Tablet] 1 each PO BID 7 Days #14 tablet 07/07/19 [Rx] Past Medical History - Past Health History Medical/Surgical History: Denies Medical/Surgical History HEENT History: Reports: None Cardiovascular History: Reports: None Respiratory History: Reports: Asthma Other Respiratory History: childhood asthma Gastrointestinal History: Reports: None Genitourinary History: Reports: None Musculoskeletal History: Reports: None Neurological History: Reports: None Psychiatric History: Reports: Anxiety Endocrine/Metabolic History: Reports: Diabetes, Type I Other Endocrine/Metabolic History: on insulin pump 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 Hematologic History: Reports: None Immunologic History: Reports: None Oncologic (Cancer) History: Reports: None Dermatologic History: Reports: None - Infectious Disease History Infectious Disease History: Reports: Chicken Pox - Past Surgical History Head Surgeries/Procedures: Reports: None HEENT Surgical History: Reports: None Cardiovascular Surgical History: Reports: None Respiratory Surgical History: Reports: None GI Surgical History: Reports: None Male Surgical History: Reports: Other (See Below) Other Male Surgeries/Procedures: undescended testicle,right Endocrine Surgical History: Reports: None Neurological Surgical History: Reports: None Musculoskeletal Surgical History: Reports: None Oncologic Surgical History: Reports: None Dermatological Surgical History: Reports: None Social & Family History - Family History Family Medical History: Noncontributory - Tobacco Use Smoking Status *Q: Current Every Day Smoker Years of Tobacco use: 23 Packs/Tins Daily: 0.2 - Caffeine Use Caffeine Use: Reports: None - Recreational Drug Use Recreational Drug Use: No ED ROS GENERAL - Review of Systems Review Of Systems: Comprehensive ROS is negative, except as noted in HPI. ED EXAM, GENERAL - Physical Exam Exam: See Below (see dictation) Course - Vital Signs Last Recorded V/S: Last Vital Signs Temp 97.8 F 07/07/19 18:06 Pulse 55 L 07/07/19 18:06 Resp 18 07/07/19 18:06 BP 114/66 07/07/19 18:06 Pulse Ox 97 07/07/19 18:06 Departure - Departure Time of Disposition: 18:26 Disposition: Home, Self-Care 01 Condition: Good Clinical Impression: Dental infection, Dentalgia - Discharge Information Referrals: Hilda Vance BUCKLE ATTACHER [Primary Care Provider] - Forms: ED Department Discharge Additional Instructions: The following information is given to patients seen in the emergency department who are being discharged to home. This information is to outline your options for follow-up care. We provide all patients seen in our emergency department with a follow-up referral. The need for follow-up, as well as the timing and circumstances, are variable depending upon the specifics of your emergency department visit. If you don't have a primary care physician on staff, we will provide you with a referral. We always advise you to contact your personal physician following an emergency department visit to inform them of the circumstance of the visit and for follow-up with them and/or the need for any referrals to a consulting specialist. The emergency department will also refer you to a specialist when appropriate. This referral assures that you have the opportunity for follow-up care with a specialist. All of these measure are taken in an effort to provide you with optimal care, which includes your follow-up. Under all circumstances we always encourage you to contact your private physician who remains a resource for coordinating your care. When calling for follow-up care, please make the office aware that this follow-up is from your recent emergency room visit. If for any reason you are refused follow-up, please contact the [facility] Emergency Department at and asked to speak to the emergency department charge nurse. [facility] [address] [place] [id number] [address] [place] [address] Take antibiotic as instructed Use dental balls and alternate Tylenol and ibuprofen as needed for pain. Follow-up with dentist Return to ED as needed discussed Sepsis Event Note - Evaluation Sepsis Screening Result: No Definite Risk - Focused Exam Vital Signs: Vital Signs Temp Pulse Resp BP Pulse Ox 07/07/19 18:06 97.8 F 55 L 18 114/66 97 Date Exam was Performed: 07/07/19 Time Exam was Performed: 18:25
[2019-07-07] MEDS ORDERED: Lidocaine 2% Viscous Solution 15 ML Cup PO ONE (18:26)
[2019-07-07] MEDS ORDERED: Benzocaine 20% Topical Spray UD MUCMEM ONE (18:26)
[2019-07-07 18:57] VITALS: BP 115/70; PULSE 70
== END 2019-07-07 18:58 | disposition home or self-care (01) ==
LOC: MW.ED 17:40
DX: K04.7 Periapical abscess without sinus (principal); K02.9 Dental caries, unspecified; K00.7 Teething syndrome; J45.909 Unspecified asthma, uncomplicated; E10.9 Type 1 diabetes mellitus without complications; F41.9 Anxiety disorder, unspecified; F17.210 Nicotine dependence, cigarettes, uncomplicated; Z79.899 Other long term (current) drug therapy
CPT/HCPCS: 99283; A9270

== ENCOUNTER 2019-08-26 10:32 | Emergency (ER) | payer MEDICAID ==
[2019-08-26] MEDS ORDERED: Ondansetron 4 MG/2 ML SDV ONE (10:38)
[2019-08-26] MEDS ORDERED: Sodium Chloride 0.9% 1,000 ML IV ONE (10:39)
[2019-08-26] MEDS ORDERED: Ondansetron 4 MG/2 ML SDV IVPUSH ONE (10:39)
[2019-08-26] MEDS ORDERED: Insulin Regular, Human 100 Units/ML 10 ML Vial SUBCUT ONE (10:44)
[2019-08-26] MEDS ORDERED: Albuterol/Ipratropium 3.0-0.5 MG/3 ML Neb Soln NEB ONE (10:51)
--- NOTE | 2019-08-26 10:58 | EDM.PDOC ---
ED HPI GENERAL MEDICAL PROBLEM - General Chief Complaint: Diabetic Complaint Stated Complaint: HIGH BLOOD SUGAR Time Seen by Provider: 08/26/19 10:47 Source of Information: Reports: Patient History Limitations: Reports: No Limitations - History of Present Illness INITIAL COMMENTS - FREE TEXT/NARRATIVE: This 34 year old male is admitted to the ED with a chief complaint of his blood sugar being above 400 after a prick of his finger. He states that he took 2 units of regular insulin one hour before arrival to the ED. He states that he normally has good control over his sugar but that as he was changing out his insulin pump last night he was tired and fell asleep. He states that he is a type 1 diabetic that was diagnosed 5-6 years ago. He states that he has a very mild cough and has been on Albuterol for wheezing. He denies any SOB or fever. He complains of being tired since last night. He denies any other symptoms at time of my evaluation. Onset: Today Duration: Getting Worse bodyaches Pain Score (Numeric/FACES): 8 - Related Data Allergies Allergy/AdvReac Type Severity Reaction Status Date / Time No Known Allergies Allergy Verified 07/07/19 18:09 Home Meds: Home Meds Sertraline [Zoloft] 200 mg PO DAILY 03/30/14 [History] Insulin Aspart [NovoLOG] 1 unit INJECT ASDIRECTED 03/09/19 [History] Albuterol Sulfate [Proair Hfa] 8.5 gm IH Q8HR PRN #1 [email or web address] 08/26/19 [Rx] Past Medical History - Past Health History Medical/Surgical History: Denies Medical/Surgical History HEENT History: Reports: None Cardiovascular History: Reports: None Respiratory History: Reports: Asthma Other Respiratory History: childhood asthma Gastrointestinal History: Reports: None Genitourinary History: Reports: None Musculoskeletal History: Reports: None Neurological History: Reports: None Psychiatric History: Reports: Anxiety Endocrine/Metabolic History: Reports: Diabetes, Type I Other Endocrine/Metabolic History: on insulin pump 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 Hematologic History: Reports: None Immunologic History: Reports: None Oncologic (Cancer) History: Reports: None Dermatologic History: Reports: None - Infectious Disease History Infectious Disease History: Reports: Chicken Pox - Past Surgical History Head Surgeries/Procedures: Reports: None HEENT Surgical History: Reports: None Cardiovascular Surgical History: Reports: None Respiratory Surgical History: Reports: None GI Surgical History: Reports: None Male Surgical History: Reports: Other (See Below) Other Male Surgeries/Procedures: undescended testicle,right Endocrine Surgical History: Reports: None Neurological Surgical History: Reports: None Musculoskeletal Surgical History: Reports: None Oncologic Surgical History: Reports: None Dermatological Surgical History: Reports: None Social & Family History - Family History Family Medical History: Noncontributory - Tobacco Use Smoking Status *Q: Current Every Day Smoker Years of Tobacco use: 20 Packs/Tins Daily: 1 - Caffeine Use Caffeine Use: Reports: None - Recreational Drug Use Recreational Drug Use: No ED ROS GENERAL - Review of Systems Review Of Systems: See Below Constitutional: Reports: Fatigue HEENT: Reports: No Symptoms Respiratory: Reports: Wheezing (mild wheezing) Cardiovascular: Reports: No Symptoms Endocrine: Reports: Fatigue, High Glucose, Polydypsia, Polyuria GI/Abdominal: Reports: Nausea : Reports: No Symptoms Musculoskeletal: Reports: No Symptoms Skin: Reports: No Symptoms Neurological: Reports: No Symptoms ED EXAM GENERAL NO PERIP PULSE - Physical Exam Exam: See Below Exam Limited By: No Limitations General Appearance: Alert, WD/WN, No Apparent Distress Ears: Normal External Exam, Normal Canal, Hearing Grossly Normal, Normal TMs Nose: Normal Inspection, Normal Mucosa, No Blood Throat/Mouth: Normal Inspection, Normal Lips, Normal Teeth, Normal Gums, Normal Oropharynx Head: Atraumatic, Normocephalic Neck: Normal Inspection, Supple Respiratory/Chest: No Respiratory Distress, Wheezing (noted through out the upper and lower lobes.), Prolonged Expiration. No: Respiratory Distress, Crackles, Rales, Rhonchi Cardiovascular: Normal Peripheral Pulses, No Edema, No Gallop, No JVD, No Murmur , Tachycardia GI/Abdominal: Normal Bowel Sounds, Soft, Non-Tender, No Distention, No Abnormal Bruit (Male) Exam: Deferred Rectal (Males) Exam: Deferred Back Exam: Normal Inspection Extremities: Normal Inspection, Normal Range of Motion, No Pedal Edema, Normal Capillary Refill Neurological: Alert, Oriented (times 4), CN II-XII Intact, Normal Cognition, Normal Reflexes, No Motor/Sensory Deficits Psychiatric: Normal Affect, Normal Mood Skin Exam: Warm, Dry, Intact, Normal Color, No Rash Lymphatic: No Adenopathy Course - Vital Signs Text/Narrative:: The patient respond well to hydration and regular insulin 10 units SQ. He also responded well to the Duoneb treatment and is now without wheezing. He states that he feels much better. He will be discharged after his second liter of normal saline. His new pump that he worked on is working fine and shows a blood sugar of 258. He agrees with the discharge plan. I talked with Dr. Martin (hospitalist) at 1:18PM. I told him that the patient's anion gap was 16 that I calculated. He feels that with a venous gas Ph of 7.3 and with negative ketones in his serum he doughs if this is DKA and to repeat the BMP in that this is most likely dehydration and that the two liters of normal saline would have corrected it. The patient's ABG, Ph is 7.43 and a HCO3 is 22 (the patient is not acidotic). He is somewhat dehydrated. I will review his BMP when it is back. At 2.06PM the patient anion gap is 8. He is feeling good and is ready at this time to go home. Last Recorded V/S: Last Vital Signs Temp 96.8 F L 08/26/19 13:36 Pulse 63 08/26/19 13:36 Resp 16 08/26/19 13:36 BP 99/49 L 08/26/19 13:36 Pulse Ox 99 08/26/19 13:36 - Orders/Labs/Meds Orders: Active Orders 24 hr Category Date Time Status RT Aerosol Therapy [RC] ASDIRECTED Care 08/26/19 10:51 Active BASIC METABOLIC PANEL,BMP [CHEM] Stat Lab 08/26/19 13:29 Received Sodium Chloride 0.9% [Normal Saline] 1,000 ml Med 08/26/19 12:15 Active IV ASDIRECTED Medication Orders Sodium Chloride (Normal Saline) 1,000 mls @ 1,000 mls/hr IV ASDIRECTED MARIELA Last Admin: 08/26/19 12:46 Dose: 1,000 mls/hr Labs: Laboratory Tests 08/26/19 08/26/19 08/26/19 Range/Units 10:40 10:40 10:40 WBC 12.97 H (4.0-11.0) K/uL RBC 5.56 (4.50-5.90) M/uL Hgb 16.4 (13.0-17.0) g/dL Hct 48.0 (38.0-50.0) % MCV 86.3 (80.0-98.0) fL MCH 29.5 (27.0-32.0) pg MCHC 34.2 (31.0-37.0) g/dL RDW Std Deviation 41.0 (28.0-62.0) fl RDW Coeff of [place] 13 (11.0-15.0) % Plt Count 282 (150-400) K/uL MPV 8.80 (7.40-12.00) fL Neut % (Auto) 76.6 (48.0-80.0) % Lymph % (Auto) 17.3 (16.0-40.0) % [place] % (Auto) 5.3 (0.0-15.0) % Eos % (Auto) 0.5 (0.0-7.0) % Baso % (Auto) 0.3 (0.0-1.5) % Neut # (Auto) 9.9 H (1.4-5.7) K/uL Lymph # (Auto) 2.3 (0.6-2.4) K/uL [place] # (Auto) 0.7 (0.0-0.8) K/uL Eos # (Auto) 0.1 (0.0-0.7) K/uL Baso # (Auto) 0.0 (0.0-0.1) K/uL Nucleated RBC % 0.0 /100WBC Nucleated RBCs # 0 K/uL ABG pH (7.35-7.45) ABG pCO2 (35-45) mmHG ABG pO2 (75-100) mmHG ABG HCO3 (22-26) mEq/L ABG Total CO2 ABG Base Excess (-2.0-2.0) VBG pH 7.32 (7.31-7.41) VBG pCO2 48 H (35-45) mmHG VBG pO2 34 (30-40) mmHG VBG HCO3 25 (22-30) mEq/L VBG Total CO2 22 L (41-51) mmol/L VBG Base Excess -2.1 (-3.0-3.0) Sodium 137 (136-148) mmol/L Potassium 3.8 (3.5-5.1) mmol/L Chloride 98 (98-107) mmol/L Carbon Dioxide 22.8 (21.0-32.0) mmol/L BUN 15 (7.0-18.0) mg/dL Creatinine 1.2 (0.8-1.3) mg/dL Est Cr Clr Drug Dosing 97.00 mL/min Estimated GFR (MDRD) > 60.0 ml/min Glucose 378 H (74-106) mg/dL POC Glucose (60-110) mg/dL Calcium 9.5 (8.5-10.1) mg/dL Total Bilirubin 1.0 (0.2-1.0) mg/dL AST 19 (15-37) IU/L ALT 26 (14-63) IU/L Alkaline Phosphatase 62 (46-116) U/L Total Protein 7.3 (6.4-8.2) g/dL Albumin 3.9 (3.4-5.0) g/dL Globulin 3.4 (2.6-4.0) g/dL Albumin/Globulin Ratio 1.1 (0.9-1.6) Urine Color Urine Appearance Urine pH (5.0-8.0) Ur Specific [place] (1.001-1.035) Urine Protein (NEGATIVE) mg/dL Urine Glucose (UA) (NEGATIVE) mg/dL Urine Ketones (NEGATIVE) mg/dL Urine Occult Blood (NEGATIVE) Urine Nitrite (NEGATIVE) Urine Bilirubin (NEGATIVE) Urine Urobilinogen (<2.0) EU/dL Ur Leukocyte Esterase (NEGATIVE) Ketones (NEG) 08/26/19 08/26/19 08/26/19 Range/Units 10:40 11:20 11:51 WBC (4.0-11.0) K/uL RBC (4.50-5.90) M/uL Hgb (13.0-17.0) g/dL Hct (38.0-50.0) % MCV (80.0-98.0) fL MCH (27.0-32.0) pg MCHC (31.0-37.0) g/dL RDW Std Deviation (28.0-62.0) fl RDW Coeff of [place] (11.0-15.0) % Plt Count (150-400) K/uL MPV (7.40-12.00) fL Neut % (Auto) (48.0-80.0) % Lymph % (Auto) (16.0-40.0) % [place] % (Auto) (0.0-15.0) % Eos % (Auto) (0.0-7.0) % Baso % (Auto) (0.0-1.5) % Neut # (Auto) (1.4-5.7) K/uL Lymph # (Auto) (0.6-2.4) K/uL [place] # (Auto) (0.0-0.8) K/uL Eos # (Auto) (0.0-0.7) K/uL Baso # (Auto) (0.0-0.1) K/uL Nucleated RBC % /100WBC Nucleated RBCs # K/uL ABG pH (7.35-7.45) ABG pCO2 (35-45) mmHG ABG pO2 (75-100) mmHG ABG HCO3 (22-26) mEq/L ABG Total CO2 ABG Base Excess (-2.0-2.0) VBG pH (7.31-7.41) VBG pCO2 (35-45) mmHG VBG pO2 (30-40) mmHG VBG HCO3 (22-30) mEq/L VBG Total CO2 (41-51) mmol/L VBG Base Excess (-3.0-3.0) Sodium (136-148) mmol/L Potassium (3.5-5.1) mmol/L Chloride (98-107) mmol/L Carbon Dioxide (21.0-32.0) mmol/L BUN (7.0-18.0) mg/dL Creatinine (0.8-1.3) mg/dL Est Cr Clr Drug Dosing mL/min Estimated GFR (MDRD) ml/min Glucose (74-106) mg/dL POC Glucose 319 H 300 H (60-110) mg/dL Calcium (8.5-10.1) mg/dL Total Bilirubin (0.2-1.0) mg/dL AST (15-37) IU/L ALT (14-63) IU/L Alkaline Phosphatase (46-116) U/L Total Protein (6.4-8.2) g/dL Albumin (3.4-5.0) g/dL Globulin (2.6-4.0) g/dL Albumin/Globulin Ratio (0.9-1.6) Urine Color Urine Appearance Urine pH (5.0-8.0) Ur Specific [place] (1.001-1.035) Urine Protein (NEGATIVE) mg/dL Urine Glucose (UA) (NEGATIVE) mg/dL Urine Ketones (NEGATIVE) mg/dL Urine Occult Blood (NEGATIVE) Urine Nitrite (NEGATIVE) Urine Bilirubin (NEGATIVE) Urine Urobilinogen (<2.0) EU/dL Ur Leukocyte Esterase (NEGATIVE) Ketones NEGATIVE (NEG) 08/26/19 08/26/19 Range/Units 12:26 13:46 WBC (4.0-11.0) K/uL RBC (4.50-5.90) M/uL Hgb (13.0-17.0) g/dL Hct (38.0-50.0) % MCV (80.0-98.0) fL MCH (27.0-32.0) pg MCHC (31.0-37.0) g/dL RDW Std Deviation (28.0-62.0) fl RDW Coeff of Martinez (11.0-15.0) % Plt Count (150-400) K/uL MPV (7.40-12.00) fL Neut % (Auto) (48.0-80.0) % Lymph % (Auto) (16.0-40.0) % [place] % (Auto) (0.0-15.0) % Eos % (Auto) (0.0-7.0) % Baso % (Auto) (0.0-1.5) % Neut # (Auto) (1.4-5.7) K/uL Lymph # (Auto) (0.6-2.4) K/uL [place] # (Auto) (0.0-0.8) K/uL Eos # (Auto) (0.0-0.7) K/uL Baso # (Auto) (0.0-0.1) K/uL Nucleated RBC % /100WBC Nucleated RBCs # K/uL ABG pH 7.434 (7.35-7.45) ABG pCO2 34 L (35-45) mmHG ABG pO2 98 (75-100) mmHG ABG HCO3 23 (22-26) mEq/L ABG Total CO2 20.2 ABG Base Excess -0.7 (-2.0-2.0) VBG pH (7.31-7.41) VBG pCO2 (35-45) mmHG VBG pO2 (30-40) mmHG VBG HCO3 (22-30) mEq/L VBG Total CO2 (41-51) mmol/L VBG Base Excess (-3.0-3.0) Sodium (136-148) mmol/L Potassium (3.5-5.1) mmol/L Chloride (98-107) mmol/L Carbon Dioxide (21.0-32.0) mmol/L BUN (7.0-18.0) mg/dL Creatinine (0.8-1.3) mg/dL Est Cr Clr Drug Dosing mL/min Estimated GFR (MDRD) ml/min Glucose (74-106) mg/dL POC Glucose (60-110) mg/dL Calcium (8.5-10.1) mg/dL Total Bilirubin (0.2-1.0) mg/dL AST (15-37) IU/L ALT (14-63) IU/L Alkaline Phosphatase (46-116) U/L Total Protein (6.4-8.2) g/dL Albumin (3.4-5.0) g/dL Globulin (2.6-4.0) g/dL Albumin/Globulin Ratio (0.9-1.6) Urine Color YELLOW Urine Appearance CLEAR Urine pH 5.5 (5.0-8.0) Ur Specific [place] 1.015 (1.001-1.035) Urine Protein NEGATIVE (NEGATIVE) mg/dL Urine Glucose (UA) >=1000 (NEGATIVE) mg/dL Urine Ketones 40 H (NEGATIVE) mg/dL Urine Occult Blood NEGATIVE (NEGATIVE) Urine Nitrite NEGATIVE (NEGATIVE) Urine Bilirubin NEGATIVE (NEGATIVE) Urine Urobilinogen 0.2 (<2.0) EU/dL Ur Leukocyte Esterase NEGATIVE (NEGATIVE) Ketones (NEG) Meds: Medications Generic Name Dose Route Start Last Admin Trade Name Freq PRN Reason Stop Dose Admin Sodium Chloride 1,000 mls @ 1,000 mls/hr 08/26/19 12:15 08/26/19 12:46 Normal Saline IV 1,000 mls/hr ASDIRECTED MARIELA Administration Discontinued Medications Generic Name Dose Route Start Last Admin Trade Name Foreignq PRN Reason Stop Dose Admin Albuterol/Ipratropium 3 ml 08/26/19 10:51 08/26/19 10:56 Duoneb 3.0-0.5 Mg/3 Ml NEB 08/26/19 10:52 3 ml ONETIME ONE Administration Sodium Chloride 1,000 mls @ 999 mls/hr 08/26/19 10:39 08/26/19 10:41 Normal Saline IV 08/26/19 11:39 999 mls/hr .Bolus ONE Administration Insulin Human Regular 10 unit 08/26/19 10:44 08/26/19 10:50 Novolin R SUBCUT 08/26/19 10:45 10 units ONETIME ONE Administration Protocol Ondansetron HCl 4 mg 08/26/19 10:39 08/26/19 10:54 Zofran IVPUSH 08/26/19 10:40 Not Given ONETIME ONE Ondansetron HCl Confirm 08/26/19 10:38 08/26/19 10:42 Zofran Administered 08/26/19 10:39 Not Given Dose 4 mg .ROUTE .STK-MED ONE Departure - Departure Time of Disposition: 14:11 Disposition: Home, Self-Care 01 Condition: Good Clinical Impression: Dehydration, mild Diabetes mellitus type 1 Qualifiers: Diabetes mellitus complication status: without complication Qualified Code(s): E10.9 - Type 1 diabetes mellitus without complications Asthma attack Qualifiers: Asthma severity: moderate Asthma persistence: unspecified Qualified Code(s): J45.901 - Unspecified asthma with (acute) exacerbation - Discharge Information *PRESCRIPTION DRUG MONITORING PROGRAM REVIEWED*: Yes *COPY OF PRESCRIPTION DRUG MONITORING REPORT IN PATIENT PÉREZ: Yes Prescriptions: Albuterol Sulfate [Proair Hfa] 8.5 gm IH Q8HR PRN #1 hfa.aer.ad PRN Reason: Cough Instructions: Metered Dose Inhaler (No Spacer Used), Type 1 Diabetes Mellitus, Self Care, Adult Referrals: PCP,Unobtain [Primary Care Provider] - Forms: ED Department Discharge Additional Instructions: Take all medications as directed. Follow up with your PCP in the next two to four days. Continue with your sliding scale for your blood sugar. Use your Proair every 8 hours as needed for wheezing. Drink plenty of clear liquids for the next 24-48 hours. Rest for the next 24 hours. Return to the ED if your condition gets worse or should you have any questions or concerns. The following information is given to patients seen in the emergency department who are being discharged to home. This information is to outline your options for follow-up care. We provide all patients seen in our emergency department with a follow-up referral. The need for follow-up, as well as the timing and circumstances, are variable depending upon the specifics of your emergency department visit. If you don't have a primary care physician on staff, we will provide you with a referral. We always advise you to contact your personal physician following an emergency department visit to inform them of the circumstance of the visit and for follow-up with them and/or the need for any referrals to a consulting specialist. The emergency department will also refer you to a specialist when appropriate. This referral assures that you have the opportunity for follow-up care with a specialist. All of these measure are taken in an effort to provide you with optimal care, which includes your follow-up. Under all circumstances we always encourage you to contact your private physician who remains a resource for coordinating your care. When calling for follow-up care, please make the office aware that this follow-up is from your recent emergency room visit. If for any reason you are refused follow-up, please contact the [facility] Emergency Department at and asked to speak to the emergency department charge nurse. Sepsis Event Note - Evaluation Sepsis Screening Result: No Definite Risk - Focused Exam Vital Signs: Vital Signs Temp Pulse Resp BP Pulse Ox 08/26/19 13:36 96.8 F L 63 16 99/49 L 99 08/26/19 12:15 64 102/51 L 08/26/19 11:46 97.8 F 91 18 95/51 L 97 08/26/19 11:23 77 108/50 L 08/26/19 10:51 72 08/26/19 10:37 96.3 F L 101 H 18 111/64 96 Date Exam was Performed: 08/26/19 Time Exam was Performed: 13:59 - My Orders Last 24 Hours: My Active Orders 08/26/19 10:51 RT Aerosol Therapy [RC] ASDIRECTED 08/26/19 12:15 Sodium Chloride 0.9% [Normal Saline] 1,000 ml IV ASDIRECTED 08/26/19 13:29 BASIC METABOLIC PANEL,BMP [CHEM] Stat - Assessment/Plan Last 24 Hours: My Active Orders 08/26/19 10:51 RT Aerosol Therapy [RC] ASDIRECTED 08/26/19 12:15 Sodium Chloride 0.9% [Normal Saline] 1,000 ml IV ASDIRECTED 08/26/19 13:29 BASIC METABOLIC PANEL,BMP [CHEM] Stat
[2019-08-26 11:25] LABS: BLOOD UREA NITROGEN,BUN 15 mg/dL (7.0-18.0); CARBON DIOXIDE,CO2 22.8 mmol/L (21.0-32.0); CHLORIDE,CL 98 mmol/L (98-107); GLUCOSE RANDOM 378 mg/dL (74-106); POTASSIUM,K 3.8 mmol/L (3.5-5.1); SODIUM,NA 137 mmol/L (136-148)
--- NOTE | 2019-08-26 11:58 | CR ---
Chest: 2 views of the chest were obtained. Comparison: Prior chest x-ray of 04/22/19. Small metallic foreign body is projected within the anterior left chest which is stable. Lungs are clear with no acute parenchymal change. Heart size and mediastinum are normal. Bony structures are unremarkable. Impression: 1. Small metallic foreign body. 2. Nothing acute is seen on 2 view chest x-ray. Diagnostic code #2 This report was dictated in MDT
[2019-08-26] MEDS ORDERED: Sodium Chloride 0.9% 1,000 ML IV SCH (12:15)
[2019-08-26 13:54] LABS: BLOOD UREA NITROGEN,BUN 14 mg/dL (7.0-18.0); CHLORIDE,CL 105 mmol/L (98-107); GLUCOSE RANDOM 238 mg/dL (74-106); POTASSIUM,K 3.7 mmol/L (3.5-5.1); SODIUM,NA 140 mmol/L (136-148)
[2019-08-26 14:44] VITALS: BP 106/53; PULSE 65
== END 2019-08-26 14:20 | disposition home or self-care (01) ==
LOC: MW.ED 10:32
DX: E10.9 Type 1 diabetes mellitus without complications (principal); E86.0 Dehydration; J45.901 Unspecified asthma with (acute) exacerbation; F17.210 Nicotine dependence, cigarettes, uncomplicated; F41.9 Anxiety disorder, unspecified; Z79.899 Other long term (current) drug therapy
CPT/HCPCS: 36415; 36600; 71046; 71046-26; 80048; 80053; 81003; 82009; 82803; 82962; 85025; 96360; 96361; 99284-25; J1815-GY; J7030; J7620-GY

== ENCOUNTER 2019-10-31 18:23 | Emergency (ER) | payer MEDICAID ==
[2019-10-31 18:48] VITALS: BP 109/65; PULSE 72
[2019-10-31] MEDS ORDERED: Lidocaine 2% Viscous Solution 15 ML Cup PO ONE (19:06)
[2019-10-31] MEDS ORDERED: Benzocaine 20% Topical Spray UD MUCMEM ONE (19:06)
--- NOTE | 2019-10-31 19:07 | EDM.PDOC ---
ED HPI GENERAL MEDICAL PROBLEM - General Chief Complaint: General Stated Complaint: TOOTH ACHE Time Seen by Provider: 10/31/19 18:45 Source of Information: Reports: Patient History Limitations: Reports: No Limitations - History of Present Illness INITIAL COMMENTS - FREE TEXT/NARRATIVE: HISTORY AND PHYSICAL: History of present illness: Patient is a 34-year-old male who presents to the emergency room with complaints of right upper posterior dental pain. He has had this discomfort x 4 days and is concerned he has an abscess. He did make a dental appointment but is unable to get in for approximately 3 weeks. He has been taking Tylenol and ibuprofen with some relief. Patient denies any fever, chills, headache, change in vision, syncope or near syncope. Denies any chest pain, back pain, shortness of breath or cough. Denies any abdominal pain, nausea, vomiting, diarrhea, constipation or dysuria. Has not noted any blood in urine or stool. Patient has been eating and drinking appropriately. Review of systems: As per history of present illness and below otherwise all systems reviewed and negative. Past medical history: As per history of present illness and as reviewed below otherwise noncontributory. Surgical history: As per history of present illness and as reviewed below otherwise noncontributory. Social history: See social history for further information Family history: As per history of present illness and as reviewed below otherwise noncontributory. Physical exam: General: Well-developed and well-nourished 34-year-old male. Alert and oriented. Nontoxic-appearing and in no acute distress HEENT: Atraumatic, normocephalic, pupils equal and reactive bilaterally, negative for conjunctival pallor or scleral icterus, mucous membranes moist, TMs normal bilaterally, throat clear, redness and fluctuance to the right posterior molar with severe dental decay noted, neck supple, nontender, trachea midline. No drooling or trismus noted. No meningeal signs. No hot potato voice noted. Lungs: Clear to auscultation, breath sounds equal bilaterally, chest nontender. Heart: S1S2, regular rate and rhythm without overt murmur Abdomen: Soft, nondistended, nontender. Skin: Intact, warm, dry. No lesions or rashes noted. Extremities: Atraumatic, moves all extremities per self without difficulty or deficits, negative for cords or calf pain. Neurovascular unremarkable. Neuro: Awake, alert, oriented. Cranial nerves II through XII unremarkable. Cerebellum unremarkable. Motor and sensory unremarkable throughout. Exam nonfocal. Notes: The need for follow-up, medication and supportive care measures were reviewed and discussed. Voices understanding and is agreeable to plan of care. Denies any further questions or concerns at this time. Diagnostics: None Therapeutics: Viscous lidocaine, [place] Prescription: Pen VK, Morgan Impression: Dental abscess Plan: 1. Please take the antibiotic as prescribed. 2. Tylenol and/or ibuprofen as needed for pain management. "Tooth Balls" have been given to you; apply along the gumline every 2-3 hours as needed. Do not swallow these; external use only. 3. Follow-up with a dentist for definitive care. Return to the ED as needed and as discussed. Definitive disposition and diagnosis as appropriate pending reevaluation and review of above. dental Pain Score (Numeric/FACES): 4 - Related Data Allergies Allergy/AdvReac Type Severity Reaction Status Date / Time No Known Allergies Allergy Verified 10/31/19 18:48 Home Meds: Home Meds Sertraline [Zoloft] 200 mg PO DAILY 03/30/14 [History] Insulin Aspart [NovoLOG] 1 unit INJECT ASDIRECTED 03/09/19 [History] Albuterol Sulfate [Proair Hfa] 8.5 gm IH Q8HR PRN #1 hfa.aer.ad 08/26/19 [Rx] Hydrocodone/Acetaminophen [[place] 5-325 Tablet] 1 tab PO Q6HR PRN #15 tablet 11/13 [Rx] Penicillin V Potassium 500 mg PO Q8HR 10 Days #30 tab 10/31/19 [Rx] Past Medical History - Past Health History Medical/Surgical History: Denies Medical/Surgical History HEENT History: Reports: None Cardiovascular History: Reports: None Respiratory History: Reports: Asthma Other Respiratory History: childhood asthma Gastrointestinal History: Reports: None Genitourinary History: Reports: None Musculoskeletal History: Reports: None Neurological History: Reports: None Psychiatric History: Reports: Anxiety Endocrine/Metabolic History: Reports: Diabetes, Type I Other Endocrine/Metabolic History: on insulin pump 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 Hematologic History: Reports: None Immunologic History: Reports: None Oncologic (Cancer) History: Reports: None Dermatologic History: Reports: None - Infectious Disease History Infectious Disease History: Reports: Chicken Pox - Past Surgical History Head Surgeries/Procedures: Reports: None HEENT Surgical History: Reports: None Cardiovascular Surgical History: Reports: None Respiratory Surgical History: Reports: None GI Surgical History: Reports: None Male Surgical History: Reports: Other (See Below) Other Male Surgeries/Procedures: undescended testicle,right Endocrine Surgical History: Reports: None Neurological Surgical History: Reports: None Musculoskeletal Surgical History: Reports: None Oncologic Surgical History: Reports: None Dermatological Surgical History: Reports: None Social & Family History - Family History Family Medical History: Noncontributory - Caffeine Use Caffeine Use: Reports: None ED ROS GENERAL - Review of Systems Review Of Systems: Comprehensive ROS is negative, except as noted in HPI. ED EXAM, GENERAL - Physical Exam Exam: See Below (See dictation) Course - Vital Signs Last Recorded V/S: Last Vital Signs Temp 96.1 F L 10/31/19 18:45 Pulse 72 10/31/19 18:45 Resp 17 10/31/19 18:45 BP 109/65 10/31/19 18:45 Pulse Ox 98 10/31/19 18:45 - Orders/Labs/Meds Meds: Medications Discontinued Medications Generic Name Dose Route Start Last Admin Trade Name Freq PRN Reason Stop Dose Admin Benzocaine 2 each 10/31/19 19:06 Hurricaine One 20% MUCMEM 10/31/19 19:07 ONETIME ONE Lidocaine HCl 15 ml 10/31/19 19:06 Xylocaine 2% Viscous PO 10/31/19 19:07 ONETIME ONE Departure - Departure Time of Disposition: 19:07 Disposition: Home, Self-Care 01 Clinical Impression: Dental abscess - Discharge Information Prescriptions: Hydrocodone/Acetaminophen [[place] 5-325 Tablet] 1 tab PO Q6HR PRN #15 tablet PRN Reason: Pain Penicillin V Potassium 500 mg PO Q8HR 10 Days #30 tab Instructions: Dental Abscess, [id number] Referrals: PCP,Not In Area [Primary Care Provider] - Forms: ED Department Discharge Additional Instructions: The following information is given to patients seen in the emergency department who are being discharged to home. This information is to outline your options for follow-up care. We provide all patients seen in our emergency department with a follow-up referral. The need for follow-up, as well as the timing and circumstances, are variable depending upon the specifics of your emergency department visit. If you don't have a primary care physician on staff, we will provide you with a referral. We always advise you to contact your personal physician following an emergency department visit to inform them of the circumstance of the visit and for follow-up with them and/or the need for any referrals to a consulting specialist. The emergency department will also refer you to a specialist when appropriate. This referral assures that you have the opportunity for follow-up care with a specialist. All of these measure are taken in an effort to provide you with optimal care, which includes your follow-up. Under all circumstances we always encourage you to contact your private physician who remains a resource for coordinating your care. When calling for follow-up care, please make the office aware that this follow-up is from your recent emergency room visit. If for any reason you are refused follow-up, please contact the [facility] Emergency Department at and asked to speak to the emergency department charge nurse. [facility] [address] [place] [address] [place] [address] 1. Please take the antibiotic as prescribed. 2. Tylenol and/or ibuprofen as needed for pain management. "Tooth Balls" have been given to you; apply along the gumline every 2-3 hours as needed. Do not swallow these; external use only. 3. Follow-up with a dentist for definitive care. Return to the ED as needed and as discussed. Sepsis Event Note - Evaluation Sepsis Screening Result: No Definite Risk - Focused Exam Vital Signs: Vital Signs Temp Pulse Resp BP Pulse Ox 10/31/19 18:45 96.1 F L 72 17 109/65 98 Date Exam was Performed: 10/31/19 Time Exam was Performed: 19:12
== END 2019-10-31 19:31 | disposition home or self-care (01) ==
LOC: MW.ED 18:23
DX: K04.7 Periapical abscess without sinus (principal); E10.9 Type 1 diabetes mellitus without complications; F41.9 Anxiety disorder, unspecified; J45.909 Unspecified asthma, uncomplicated; Z79.899 Other long term (current) drug therapy
CPT/HCPCS: 99282; A9270

== ENCOUNTER 2019-11-03 20:01 | Emergency (ER) | payer MEDICAID ==
[2019-11-03] MEDS ORDERED: Ketorolac 60 MG/2 ML SDV IM ONE (20:25)
[2019-11-03 20:27] VITALS: BP 127/58; PULSE 62
--- NOTE | 2019-11-03 20:31 | EDM.PDOC ---
ED HPI GENERAL MEDICAL PROBLEM - General Chief Complaint: General Stated Complaint: TOOTHACHE Time Seen by Provider: 11/03/19 20:16 Source of Information: Reports: Patient History Limitations: Reports: No Limitations - History of Present Illness INITIAL COMMENTS - FREE TEXT/NARRATIVE: Since reporting dental pain. The patient was states that he has number of rotted teeth but in the right upper quadrant he has had terrible dental pain over the last week. He was seen in this emergency room on 10/31/2019 with the same complaint. He was treated and sent home with dental balls, penicillin and oxycodone. He has an appointment for removal of his remaining teeth in 1-1/2 weeks at his dentist. He states that he has throbbing pain and tenderness in the right upper quadrant and maxillary area that prevents him from sleep. No fever, elevated heart rate. He is a type I diabetic. He states that his blood sugars have been running about 150-220. - Related Data Allergies Allergy/AdvReac Type Severity Reaction Status Date / Time No Known Allergies Allergy Verified 10/31/19 18:48 Home Meds: Home Meds Sertraline [Zoloft] 200 mg PO DAILY 03/30/14 [History] Insulin Aspart [NovoLOG] 1 unit INJECT ASDIRECTED 03/09/19 [History] Albuterol Sulfate [Proair Hfa] 8.5 gm IH Q8HR PRN #1 hfa.aer.ad 08/26/19 [Rx] Hydrocodone/Acetaminophen [[place] 5-325 Tablet] 1 tab PO Q6HR PRN #15 tablet 11/13 [Rx] Penicillin V Potassium 500 mg PO Q8HR 10 Days #30 tab 10/31/19 [Rx] oxyCODONE HCl/Acetaminophen [Percocet 7.5-325 mg Tablet] 1 tab PO Q8HR PRN #15 tablet 11/03/19 [Rx] Past Medical History - Past Health History Medical/Surgical History: Denies Medical/Surgical History HEENT History: Reports: None Cardiovascular History: Reports: None Respiratory History: Reports: Asthma Other Respiratory History: childhood asthma Gastrointestinal History: Reports: None Genitourinary History: Reports: None Musculoskeletal History: Reports: None Neurological History: Reports: None Psychiatric History: Reports: Anxiety Endocrine/Metabolic History: Reports: Diabetes, Type I Other Endocrine/Metabolic History: on insulin pump 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 Hematologic History: Reports: None Immunologic History: Reports: None Oncologic (Cancer) History: Reports: None Dermatologic History: Reports: None - Infectious Disease History Infectious Disease History: Reports: Chicken Pox - Past Surgical History Head Surgeries/Procedures: Reports: None HEENT Surgical History: Reports: None Cardiovascular Surgical History: Reports: None Respiratory Surgical History: Reports: None GI Surgical History: Reports: None Male Surgical History: Reports: Other (See Below) Other Male Surgeries/Procedures: undescended testicle,right Endocrine Surgical History: Reports: None Neurological Surgical History: Reports: None Musculoskeletal Surgical History: Reports: None Oncologic Surgical History: Reports: None Dermatological Surgical History: Reports: None Social & Family History - Family History Family Medical History: Noncontributory - Caffeine Use Caffeine Use: Reports: None ED ROS ENT - Review of Systems Review Of Systems: Comprehensive ROS is negative, except as noted in HPI. ED EXAM, ENT - Physical Exam Exam: See Below Exam Limited By: No Limitations General Appearance: Alert, Mild Distress (Due to dental pain) Ears: Normal External Exam Nose: Normal Inspection Mouth/Throat: Other (A number of teeth that are rotted off to the gumline including 2 in the right upper quadrant. Many missing teeth. In the right upper quadrant and over the maxilla's tenderness. Gingival swelling in the right upper quadrant. Dates.) Head: Atraumatic, Normocephalic Neck: Normal Inspection Respiratory/Chest: No Respiratory Distress, Lungs Clear, Normal Breath Sounds Cardiovascular: Normal Peripheral Pulses, Regular Rate, Rhythm, No Edema Departure - Departure Time of Disposition: 20:36 Disposition: Home, Self-Care 01 Clinical Impression: Gingivitis, Dental caries - Discharge Information Referrals: PCP,None [Primary Care Provider] - Forms: ED Department Discharge Additional Instructions: The following information is given to patients seen in the emergency department who are being discharged to home. This information is to outline your options for follow-up care. We provide all patients seen in our emergency department with a follow-up referral. The need for follow-up, as well as the timing and circumstances, are variable depending upon the specifics of your emergency department visit. If you don't have a primary care physician on staff, we will provide you with a referral. We always advise you to contact your personal physician following an emergency department visit to inform them of the circumstance of the visit and for follow-up with them and/or the need for any referrals to a consulting specialist. The emergency department will also refer you to a specialist when appropriate. This referral assures that you have the opportunity for follow-up care with a specialist. All of these measure are taken in an effort to provide you with optimal care, which includes your follow-up. Under all circumstances we always encourage you to contact your private physician who remains a resource for coordinating your care. When calling for follow-up care, please make the office aware that this follow-up is from your recent emergency room visit. If for any reason you are refused follow-up, please contact the [facility] Emergency Department at and asked to speak to the emergency department charge nurse. 1. Dental balls. Place over affected tooth and gently bite down for 10 minutes every 1-2 hours. 2. Continue your antibiotic. 3. You may take your pain medication every 8 hours as needed. No driving or operating machinery. Limit with ibuprofen 3-4 tabs twice daily as needed with food. 4. Low up with your dentist as previously scheduled
[2019-11-03] MEDS ORDERED: Lidocaine 2% Viscous Solution 15 ML Cup PO ONE (20:35)
[2019-11-03] MEDS ORDERED: Benzocaine 20% Topical Spray UD MUCMEM ONE (20:35)
== END 2019-11-03 20:48 | disposition home or self-care (01) ==
LOC: MW.ED 20:01
DX: K05.10 Chronic gingivitis, plaque induced (principal); K02.9 Dental caries, unspecified; E10.9 Type 1 diabetes mellitus without complications; Z79.899 Other long term (current) drug therapy; J45.909 Unspecified asthma, uncomplicated
CPT/HCPCS: 96372; 99282; A9270; J1885

== ENCOUNTER 2019-11-13 16:15 | Emergency (ER) | payer MEDICAID ==
--- NOTE | 2019-11-13 16:19 | EDM.PDOC ---
ED HPI GENERAL MEDICAL PROBLEM - General Stated Complaint: HE NEED MEDICATION Time Seen by Provider: 11/13/19 16:17 Source of Information: Reports: Patient History Limitations: Reports: No Limitations - History of Present Illness INITIAL COMMENTS - FREE TEXT/NARRATIVE: HISTORY AND PHYSICAL: History of present illness: Patient is a 34-year-old male who presents to the emergency room requesting medication refill. Patient takes Zoloft 200 mg once daily and ran out of this medication on Saturday. He did attempt to get into his primary care provider but his appointment was canceled today. They recommended he come to the emergency room for medication refill until he can be seen next Saturday with his PCP. He offers no complaints other than stating he feels a little "foggy". Patient denies any fever, chills, headache, change in vision, syncope or near syncope. Denies any chest pain, back pain, shortness of breath or cough. Denies any abdominal pain, nausea, vomiting, diarrhea, constipation or dysuria. Has not noted any blood in urine or stool. Patient has been eating and drinking appropriately. Review of systems: As per history of present illness and below otherwise all systems reviewed and negative. Past medical history: As per history of present illness and as reviewed below otherwise noncontributory. Surgical history: As per history of present illness and as reviewed below otherwise noncontributory. Social history: See social history for further information Family history: As per history of present illness and as reviewed below otherwise noncontributory. Physical exam: General: Well-developed and well-nourished 34-year-old male. Alert and oriented. Nontoxic-appearing and in no acute distress. HEENT: Atraumatic, normocephalic, pupils equal and reactive bilaterally, negative for conjunctival pallor or scleral icterus, mucous membranes moist, TMs normal bilaterally, throat clear, neck supple, nontender, trachea midline. No drooling or trismus noted. No meningeal signs. No hot potato voice noted. Lungs: Clear to auscultation, breath sounds equal bilaterally, chest nontender. Heart: S1S2, regular rate and rhythm without overt murmur Abdomen: Soft, nondistended, nontender. Skin: Intact, warm, dry. No lesions or rashes noted. Extremities: Atraumatic, moves all extremities per self without difficulty or deficits, negative for cords or calf pain. Neurovascular unremarkable. Neuro: Awake, alert, oriented. Cranial nerves II through XII unremarkable. Cerebellum unremarkable. Motor and sensory unremarkable throughout. Exam nonfocal. Notes: Physical examination is within normal limits. He declines wanting any diagnostics at this time. I will refill his Zoloft until he is seen on Saturday. We discussed the importance of following up and making sure he has enough medications that he does not skip days without. Supportive care measures were reviewed and discussed. Voices understanding and is agreeable to plan of care. Denies any further questions or concerns at this time. Diagnostics: None Therapeutics: None Prescription: Zoloft #10 Impression: Encounter for medication refill Plan: 1. Take your medication as prescribed. 2. Attend your appointment with your primary care provider for further medication refill. 3. Return to the ED as needed and as discussed. Definitive disposition and diagnosis as appropriate pending reevaluation and review of above. - Related Data Allergies Allergy/AdvReac Type Severity Reaction Status Date / Time No Known Allergies Allergy Verified 11/13/19 16:37 Home Meds: Home Meds Sertraline [Zoloft] 200 mg PO DAILY 03/30/14 [History] Insulin Aspart [NovoLOG] 1 unit INJECT ASDIRECTED 03/09/19 [History] Past Medical History - Past Health History Medical/Surgical History: Denies Medical/Surgical History HEENT History: Reports: None Cardiovascular History: Reports: None Respiratory History: Reports: Asthma Other Respiratory History: childhood asthma Gastrointestinal History: Reports: None Genitourinary History: Reports: None Musculoskeletal History: Reports: None Neurological History: Reports: None Psychiatric History: Reports: Anxiety Endocrine/Metabolic History: Reports: Diabetes, Type I Other Endocrine/Metabolic History: on insulin pump 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 Hematologic History: Reports: None Immunologic History: Reports: None Oncologic (Cancer) History: Reports: None Dermatologic History: Reports: None - Infectious Disease History Infectious Disease History: Reports: Chicken Pox - Past Surgical History Head Surgeries/Procedures: Reports: None HEENT Surgical History: Reports: None Cardiovascular Surgical History: Reports: None Respiratory Surgical History: Reports: None GI Surgical History: Reports: None Male Surgical History: Reports: Other (See Below) Other Male Surgeries/Procedures: undescended testicle,right Endocrine Surgical History: Reports: None Neurological Surgical History: Reports: None Musculoskeletal Surgical History: Reports: None Oncologic Surgical History: Reports: None Dermatological Surgical History: Reports: None Social & Family History - Family History Family Medical History: Noncontributory - Caffeine Use Caffeine Use: Reports: None ED ROS GENERAL - Review of Systems Review Of Systems: Comprehensive ROS is negative, except as noted in HPI. ED EXAM, GENERAL - Physical Exam Exam: See Below (See dictation) Departure - Departure Time of Disposition: 16:39 Disposition: Home, Self-Care 01 Clinical Impression: Encounter for medication refill - Discharge Information Forms: ED Department Discharge Care Plan Goals: The following information is given to patients seen in the emergency department who are being discharged to home. This information is to outline your options for follow-up care. We provide all patients seen in our emergency department with a follow-up referral. The need for follow-up, as well as the timing and circumstances, are variable depending upon the specifics of your emergency department visit. If you don't have a primary care physician on staff, we will provide you with a referral. We always advise you to contact your personal physician following an emergency department visit to inform them of the circumstance of the visit and for follow-up with them and/or the need for any referrals to a consulting specialist. The emergency department will also refer you to a specialist when appropriate. This referral assures that you have the opportunity for follow-up care with a sp ecialist. All of these measure are taken in an effort to provide you with optimal care, which includes your follow-up. Under all circumstances we always encourage you to contact your private physicia n who remains a resource for coordinating your care. When calling for follow-up care, please make the office aware that this follow-up is from your recent emergency room visit. If for any reason you are refused follow-up, please contact the [facility] Emergency Department at and asked to speak to the emergency department charge nurse. [facility] [address] [place] [id number] [address] 1. Take your medication as prescribed. 2. Attend your appointment with your primary care provider for further medication refill. 3. Return to the ED as needed and as discussed.
[2019-11-13 20:32] VITALS: BP 107/62; PULSE 97
== END 2019-11-13 16:45 | disposition home or self-care (01) ==
LOC: MW.ED 16:15
DX: F41.9 Anxiety disorder, unspecified (principal); Z76.0 Encounter for issue of repeat prescription; E10.9 Type 1 diabetes mellitus without complications; Z79.899 Other long term (current) drug therapy
CPT/HCPCS: 99281

== ENCOUNTER 2019-11-23 21:08 | Emergency (ER) | payer MEDICAID ==
[2019-11-23 21:16] VITALS: PULSE 70
--- NOTE | 2019-11-23 21:34 | EDM.PDOC ---
ED HPI GENERAL MEDICAL PROBLEM - General Chief Complaint: General Stated Complaint: DEPRESSION/MEDICATION Time Seen by Provider: 11/23/19 21:22 - History of Present Illness INITIAL COMMENTS - FREE TEXT/NARRATIVE: History of present illness: Is depressed. He is 4 days out of his sertraline. He takes 200 mg at bedtime. He has not been able to get into see his doctor because of her emergencies in the COVID crisis. The patient is not hallucinating and not suicidal or homicidal. He does not have any thoughts of self-harm or harming others. He is not delusional. Patient also is out of his HFA pro-air. Smokes and smokes more because he is feel a little more agitated and depressed that he is out of his medicine. [] Review of systems: As per history of present illness and below otherwise all systems reviewed and negative. Past medical history: As per history of present illness and as reviewed below otherwise noncontributory. Surgical history: As per history of present illness and as reviewed below otherwise n oncontributory. Social history: No reported history of drug or alcohol abuse. Family history: As per history of present illness and as reviewed below otherwise noncontributory. Physical exam: Constitutional - well developed, well-nourished and in no acute distress HEENT - normocephalic, no evidence of trauma - external nose and mouth normal - no mass in neck and no JVD - mucosae moist EYES - full EOM, PERRL, no icterus - no evidence of inflammation, injection, or drainage Respiratory - no respiratory distress, equal bilateral expansion, scattered wheezes throughout but no distress. Cardiovascular - Regular Rhythm with S1 and S2 appreciated and no murmur, gallop or rub. Peripheral pulses symmetrically normal in all four extremities GI - abdomen soft without distension or organomegaly - normal bowel sounds - no guard or rebound Musculoskeletal no gross deformity of long bones or joints - no tenderness, swelling or edema Neurologic - Alert and oriented times four - CN II-XII grossly intact - motor sensory and coordination symmetrically normal Psychiatric - appropriate mood and affect with normal thought content Hematologic - No petechiae or purpura - mucosa appropriate color and sclera not pale - normal nail bed color and refill Integument - no rash or evidence of trauma - normal turgor Diagnostics: [] Therapeutics: [] Impression: [] Plan: [] Definitive disposition and diagnosis as appropriate pending reevaluation and review of above. - Related Data Allergies Allergy/AdvReac Type Severity Reaction Status Date / Time No Known Allergies Allergy Verified 11/23/19 21:16 Home Meds: Home Meds Sertraline [Zoloft] 200 mg PO DAILY 03/30/14 [History] Insulin Aspart [NovoLOG] 1 unit INJECT ASDIRECTED 03/09/19 [History] Albuterol Sulfate [Albuterol Sulfate Hfa] 8.5 gm IH Q8H PRN #1 hfa.aer.ad 11/23/19 [Rx] Sertraline [Zoloft] 200 mg PO BEDTIME #30 tab 11/23/19 [Rx] Past Medical History - Past Health History Medical/Surgical History: Denies Medical/Surgical History HEENT History: Reports: None Cardiovascular History: Reports: None Respiratory History: Reports: Asthma Other Respiratory History: childhood asthma Gastrointestinal History: Reports: None Genitourinary History: Reports: None Musculoskeletal History: Reports: None Neurological History: Reports: None Psychiatric History: Reports: Anxiety Endocrine/Metabolic History: Reports: Diabetes, Type I Other Endocrine/Metabolic History: on insulin pump 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: [id number] Hematologic History: Reports: None Immunologic History: Reports: None Oncologic (Cancer) History: Reports: None Dermatologic History: Reports: None - Infectious Disease History Infectious Disease History: Reports: Chicken Pox - Past Surgical History Head Surgeries/Procedures: Reports: None HEENT Surgical History: Reports: None Cardiovascular Surgical History: Reports: None Respiratory Surgical History: Reports: None GI Surgical History: Reports: None Male Surgical History: Reports: Other (See Below) Other Male Surgeries/Procedures: undescended testicle,right Endocrine Surgical History: Reports: None Neurological Surgical History: Reports: None Musculoskeletal Surgical History: Reports: None Oncologic Surgical History: Reports: None Dermatological Surgical History: Reports: None Social & Family History - Family History Family Medical History: Noncontributory - Tobacco Use Smoking Status *Q: Current Every Day Smoker Years of Tobacco use: 20 Packs/Tins Daily: 1 - Caffeine Use Caffeine Use: Reports: Soda - Recreational Drug Use Recreational Drug Use: No ED ROS GENERAL - Review of Systems Review Of Systems: Comprehensive ROS is negative, except as noted in HPI. ED EXAM, GENERAL - Physical Exam Exam: See Below Free Text/Narrative:: My exam is in my HPI Course - Vital Signs Last Recorded V/S: Last Vital Signs Temp 97.4 F 11/23/19 21:14 Pulse 70 11/23/19 21:14 Resp 16 11/23/19 21:14 BP 112/74 11/23/19 21:14 Pulse Ox 98 11/23/19 21:14 Departure - Departure Time of Disposition: 21:30 Disposition: Home, Self-Care 01 Condition: Good Clinical Impression: Depression - Discharge Information Prescriptions: Albuterol Sulfate [Albuterol Sulfate Hfa] 8.5 gm IH Q8H PRN #1 hfa.aer.ad PRN Reason: Wheezing Sertraline [Zoloft] 200 mg PO BEDTIME #30 tab Instructions: Living With Depression Referrals: PCP,None [Primary Care Provider] - Forms: ED Department Discharge Additional Instructions: The following information is given to patients seen in the emergency department who are being discharged to home. This information is to outline your options for follow-up care. We provide all patients seen in our emergency department with a follow-up referral. The need for follow-up, as well as the timing and circumstances, are variable depending upon the specifics of your emergency department visit. If you don't have a primary care physician on staff, we will provide you with a referral. We always advise you to contact your personal physician following an emergency department visit to inform them of the circumstance of the visit and for follow-up with them and/or the need for any referrals to a consulting specialist. The emergency department will also refer you to a specialist when appropriate. This referral assures that you have the opportunity for follow-up care with a specialist. All of these measure are taken in an effort to provide you with optimal care, which includes your follow-up. Under all circumstances we always encourage you to contact your private physician who remains a resource for coordinating your care. When calling for follow-up care, please make the office aware that this follow-up is from your recent emergency room visit. If for any reason you are refused follow-up, please contact the [facility] Emergency Department at and asked to speak to the emergency department charge nurse. Jeff Dias [facility] - Primary Care [address] [place] [id number] [facility] [address] [place] [address] [facility] Address: [address] [place] [id number] Hours: walk in 9 AM M-F Sepsis Event Note (ED) - Evaluation Sepsis Screening Result: No Definite Risk - Focused Exam Vital Signs: Vital Signs Temp Pulse Resp BP Pulse Ox 11/23/19 21:14 97.4 F 70 16 112/74 98
[2019-11-23 22:35] VITALS: BP 110/70
== END 2019-11-23 21:45 | disposition home or self-care (01) ==
LOC: MW.ED 21:08
DX: F32.9 Major depressive disorder, single episode, unspecified (principal); J45.909 Unspecified asthma, uncomplicated; F41.9 Anxiety disorder, unspecified; E10.9 Type 1 diabetes mellitus without complications; F17.210 Nicotine dependence, cigarettes, uncomplicated; Z79.899 Other long term (current) drug therapy
CPT/HCPCS: 99283

== ENCOUNTER 2019-12-10 08:40 | Emergency (ER) | payer MEDICAID ==
[2019-12-10 08:57] VITALS: BP 116/55; PULSE 77
--- NOTE | 2019-12-10 09:35 | EDM.PDOC ---
ED HPI GENERAL MEDICAL PROBLEM - General Chief Complaint: Medication Administration Stated Complaint: MEDICATION Time Seen by Provider: 12/10/19 08:43 - History of Present Illness INITIAL COMMENTS - FREE TEXT/NARRATIVE: HISTORY AND PHYSICAL: History of present illness: 34-year-old male with a diagnosis of type 1 diabetes as an adult at age 29, some mild depressive symptoms well treated with Zoloft [facility] is having trouble accessing primary care after changing coverage for the service. He presents emergency department with a request for evaluation for insulin refill and Zoloft. He is doing well without significant problems. He is concerned because he has been off his medicine and is worried that he will have negative consequences. He has a follow-up appointment in about 1 week. No other's current symptoms. Review of systems: A 10-point review of systems, other than pertinent positives and negatives as stated per HPI, is otherwise negative. Past medical history: As per history of present illness and as reviewed below otherwise noncontributory. Surgical history: As per history of present illness and as reviewed below otherwise noncontributory. Social history: No reported history of drug or alcohol abuse. Family history: As per history of present illness and as reviewed below otherwise noncontributory. Physical exam: VITAL SIGNS: Reviewed. GENERAL: In no apparent distress. HEAD: No signs of head trauma. EYES: Pupils are equal. Extraocular motions intact. EARS: Hearing grossly intact. MOUTH: Oropharynx is normal. NECK: No adenopathy, no JVD. CHEST: No tachypnea or accessory muscle use. No adventitious breath CARDIAC: Regular rhythm and rate. VASCULAR: Peripheral pulses normal and equal in all extremities. MUSCULOSKELETAL: Good range of motion in all joints. No discernible abnormalities. NEUROLOGIC EXAM: Alert and oriented x 3. No focal sensory or motor deficits. Speech normal. Follows commands. PSYCHIATRIC: Mood normal. SKIN: No rash or lesions. Initial Differential Diagnosis & Plan: No significant abnormalities on exam. Refill of NovoLog and Zoloft. Follow-up with his primary care doctor/provider. Definitive disposition and diagnosis as appropriate pending reevaluation and review of above. - Related Data Allergies Allergy/AdvReac Type Severity Reaction Status Date / Time No Known Allergies Allergy Verified 12/10/19 08:57 Home Meds: Home Meds Sertraline [Zoloft] 200 mg PO DAILY 03/30/14 [History] Insulin Aspart [NovoLOG] 1 unit INJECT ASDIRECTED #100 pen 12/10/19 [Rx] Sertraline [Zoloft] 200 mg PO DAILY #30 tab 12/10/19 [Rx] Past Medical History - Past Health History Medical/Surgical History: Denies Medical/Surgical History HEENT History: Reports: None Cardiovascular History: Reports: None Respiratory History: Reports: Asthma Other Respiratory History: childhood asthma Gastrointestinal History: Reports: None Genitourinary History: Reports: None Musculoskeletal History: Reports: None Neurological History: Reports: None Psychiatric History: Reports: Anxiety Endocrine/Metabolic History: Reports: Diabetes, Type I Other Endocrine/Metabolic History: on insulin pump 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[employer] Hematologic History: Reports: None Immunologic History: Reports: None Oncologic (Cancer) History: Reports: None Dermatologic History: Reports: None - Infectious Disease History Infectious Disease History: Reports: None - Past Surgical History Head Surgeries/Procedures: Reports: None HEENT Surgical History: Reports: None Cardiovascular Surgical History: Reports: None Respiratory Surgical History: Reports: None GI Surgical History: Reports: None Male Surgical History: Reports: Other (See Below) Other Male Surgeries/Procedures: undescended testicle,right Endocrine Surgical History: Reports: None Neurological Surgical History: Reports: None Musculoskeletal Surgical History: Reports: None Oncologic Surgical History: Reports: None Dermatological Surgical History: Reports: None Social & Family History - Family History Family Medical History: Noncontributory - Tobacco Use Smoking Status *Q: Current Every Day Smoker Years of Tobacco use: 20 Packs/Tins Daily: 2 - Caffeine Use Caffeine Use: Reports: Soda - Recreational Drug Use Recreational Drug Use: No ED ROS GENERAL - Review of Systems Review Of Systems: See Below (Noted) ED EXAM, GENERAL - Physical Exam Exam: See Below (Noted) Course - Vital Signs Last Recorded V/S: Last Vital Signs Temp 96.4 F L 12/10/19 08:53 Pulse 77 12/10/19 08:53 Resp 16 12/10/19 08:53 BP 116/55 L 12/10/19 08:53 Pulse Ox 97 12/10/19 08:53 Departure - Departure Time of Disposition: 09:32 Disposition: Refer to Observation Clinical Impression: Diabetes mellitus type 1, Medication refill, Depression - Discharge Information *PRESCRIPTION DRUG MONITORING PROGRAM REVIEWED*: Not Applicable *COPY OF PRESCRIPTION DRUG MONITORING REPORT IN PATIENT PÉREZ: Not Applicable Prescriptions: Insulin Aspart [NovoLOG] 1 unit INJECT ASDIRECTED #100 pen Sertraline [Zoloft] 200 mg PO DAILY #30 tab Instructions: Insulin Treatment for Diabetes Mellitus, Living With Depression, Type 1 Diabetes Mellitus, Self Care, Adult Referrals: PCP,None [Primary Care Provider] - Lizeth Shrestha NP [Nurse Practitioner] - Forms: ED Department Discharge Additional Instructions: The following information is given to patients seen in the emergency department who are being discharged to home. This information is to outline your options for follow-up care. We provide all patients seen in our emergency department with a follow-up referral. The need for follow-up, as well as the timing and circumstances, are variable depending upon the specifics of your emergency department visit. If you don't have a primary care physician on staff, we will provide you with a referral. We always advise you to contact your personal physician following an emergency department visit to inform them of the circumstance of the visit and for follow-up with them and/or the need for any referrals to a consulting specialist. The emergency department will also refer you to a specialist when appropriate. This referral assures that you have the opportunity for follow-up care with a specialist. All of these measure are taken in an effort to provide you with optimal care, which includes your follow-up. Thank you for coming to the [facility] urgency department for your care today. It was Dr. Parada's pleasure to take care of you. Please follow-up with Mrs. Dunbar, EULOGIO, range, and return emergency department for any other needs. Under all circumstances we always encourage you to contact your private physician who remains a resource for coordinating your care. When calling for follow-up care, please make the office aware that this follow-up is from your recent emergency room visit. If for any reason you are refused follow-up, please contact the [facility] Emergency Department at and asked to speak to the emergency department charge nurse. Sepsis Event Note (ED) - Evaluation Sepsis Screening Result: No Definite Risk - Focused Exam Vital Signs: Vital Signs Temp Pulse Resp BP Pulse Ox 12/10/19 08:53 96.4 F L 77 16 116/55 L 97
== END 2019-12-10 09:40 | disposition home or self-care (01) ==
LOC: MW.ED 08:40
DX: F32.9 Major depressive disorder, single episode, unspecified (principal); E10.9 Type 1 diabetes mellitus without complications; Z76.0 Encounter for issue of repeat prescription; J45.909 Unspecified asthma, uncomplicated; Z79.899 Other long term (current) drug therapy
CPT/HCPCS: 99281

== ENCOUNTER 2019-12-25 13:43 | Emergency (ER) | payer MEDICAID ==
[2019-12-25] MEDS ORDERED: Sodium Chloride 0.9% 2.5 ML Syringe FLUSH PRN (13:57)
[2019-12-25] MEDS ORDERED: Sodium Chloride 0.9% 10 ML Syringe FLUSH PRN (13:57)
[2019-12-25 14:23] VITALS: BP 113/57; PULSE 81
[2019-12-25] MEDS ORDERED: Sodium Chloride 0.9% 1,000 ML IV ONE (14:27)
[2019-12-25] MEDS ORDERED: Morphine 2 MG/ML SYRINGE IVPUSH ONE (14:30)
[2019-12-25] MEDS ORDERED: Ondansetron 4 MG/2 ML SDV IVPUSH ONE (14:30)
--- NOTE | 2019-12-25 14:38 | EDM.PDOC ---
ED HPI GENERAL MEDICAL PROBLEM - General Chief Complaint: Diabetic Complaint Stated Complaint: POSSIBLE DKA Time Seen by Provider: 12/25/19 13:50 Source of Information: Reports: Patient History Limitations: Reports: No Limitations - History of Present Illness INITIAL COMMENTS - FREE TEXT/NARRATIVE: HISTORY AND PHYSICAL: History of present illness: Patient is a 34-year-old male with a history of type 1 diabetes who has an insulin pump who presents with complaints of generalized body aches and high blood sugars. He states over the past 2 days he has had generalized body aches stating "I feel like I have been beat up". He has made sure his insulin pump is working and he put a new vial of insulin, states it is working appropriately. Sugars have been ranging from 200-300. He is concerned that he is dehydrated, eating his urine is very concentrated. He has had intermittent episodes of nausea without abdominal pain. Patient denies any fever, chills, headache, change in vision, syncope or near syncope. Denies any chest pain, back pain, shortness of breath or cough. Denies any vomiting, diarrhea, constipation or dysuria. Has not noted any blood in urine or stool. Patient has been eating and drinking appropriately. Review of systems: As per history of present illness and below otherwise all systems reviewed and negative. Past medical history: As per history of present illness and as reviewed below otherwise noncontributory. Surgical history: As per history of present illness and as reviewed below otherwise noncontributory. Social history: See social history for further information Family history: As per history of present illness and as reviewed below otherwise noncontributory. Physical exam: General: Well-developed and well-nourished 34-year-old male. Alert and oriented. Nontoxic-appearing and in no acute distress. HEENT: Atraumatic, normocephalic, pupils equal and reactive bilaterally, negative for conjunctival pallor or scleral icterus, mucous membranes moist, TMs normal bilaterally, throat clear, neck supple, nontender, trachea midline. No drooling or trismus noted. No meningeal signs. No hot potato voice noted. Lungs: Clear to auscultation, breath sounds equal bilaterally, chest nontender. Heart: S1S2, regular rate and rhythm without overt murmur Abdomen: Soft, nondistended, nontender. Insulin pump noted to left low abdomen. Negative for masses or hepatosplenomegaly. Negative for costovertebral tenderness. Pelvis: Stable nontender. Skin: Intact, warm, dry. No lesions or rashes noted. Extremities: Atraumatic, moves all extremities per self without difficulty or deficits, negative for cords or calf pain. Neurovascular unremarkable. Neuro: Awake, alert, oriented. Cranial nerves II through XII unremarkable. Cerebellum unremarkable. Motor and sensory unremarkable throughout. Exam nonfocal. Notes: Patient's physical exam is within normal limits other than the generalized body aches he is experiencing. Before administering any insulin his blood sugar is now down to 180s. He has no serum ketones, he is not in DKA. Patient declines wanting to give a urine sample or having COVID testing. He states he feels impr heather after the IV fluids and is requesting to be discharged home. We did discuss admission versus outpatient care, he is adamant about discharge. He is drinking fluids without any difficulty at bedside. Vital signs remained stable. We discussed signs and symptoms that would prompt him to return to the emergency room. Supportive care measures were reviewed and discussed. Voices understanding and is agreeable to plan of care. Denies any further questions or concerns at this time. Diagnostics: CBC, CMP, UA, serum ketones, CPK Therapeutics: Normal saline, morphine, Zofran, insulin Prescription: None Impression: DM 1 with hyperglycemia Plan: 1. Continue to monitor your blood sugars closely. You declined admission today. If your symptoms should worsen, new symptoms develop or any of the signs and symptoms we discussed should arise please return to the emergency room or call 911 (if needed). 2. Drink plenty of fluids, small frequent sips. 3. Follow-up with your primary care provider as we discussed. Definitive disposition and diagnosis as appropriate pending reevaluation and review of above. Generalized Pain Score (Numeric/FACES): 7 - Related Data Allergies Allergy/AdvReac Type Severity Reaction Status Date / Time No Known Allergies Allergy Verified 12/25/19 14:19 Home Meds: Home Meds Insulin Aspart [NovoLOG] 1 unit INJECT ASDIRECTED #100 pen 12/10/19 [Rx] Sertraline [Zoloft] 200 mg PO DAILY #30 tab 12/10/19 [Rx] Past Medical History - Past Health History Medical/Surgical History: Denies Medical/Surgical History HEENT History: Reports: None Cardiovascular History: Reports: None Respiratory History: Reports: Asthma Other Respiratory History: childhood asthma Gastrointestinal History: Reports: None Genitourinary History: Reports: None Musculoskeletal History: Reports: None Neurological History: Reports: None Psychiatric History: Reports: Anxiety Endocrine/Metabolic History: Reports: Diabetes, Type I Other Endocrine/Metabolic History: on insulin pump 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: [employer] Hematologic History: Reports: None Immunologic History: Reports: None Oncologic (Cancer) History: Reports: None Dermatologic History: Reports: None - Infectious Disease History Infectious Disease History: Reports: None - Past Surgical History Head Surgeries/Procedures: Reports: None HEENT Surgical History: Reports: None Cardiovascular Surgical History: Reports: None Respiratory Surgical History: Reports: None GI Surgical History: Reports: None Male Surgical History: Reports: Other (See Below) Other Male Surgeries/Procedures: undescended testicle,right Endocrine Surgical History: Reports: None Neurological Surgical History: Reports: None Musculoskeletal Surgical History: Reports: None Oncologic Surgical History: Reports: None Dermatological Surgical History: Reports: None Social & Family History - Family History Family Medical History: Noncontributory - Tobacco Use Smoking Status *Q: Current Every Day Smoker Years of Tobacco use: 20 Packs/Tins Daily: 1 - Caffeine Use Caffeine Use: Reports: None - Recreational Drug Use Recreational Drug Use: No ED ROS GENERAL - Review of Systems Review Of Systems: Comprehensive ROS is negative, except as noted in HPI. ED EXAM GENERAL NO PERIP PULSE - Physical Exam Exam: See Below (See dictation) Course - Vital Signs Last Recorded V/S: Last Vital Signs Temp 97.8 F 12/25/19 14:22 Pulse 81 12/25/19 14:22 Resp 18 12/25/19 14:22 BP 113/57 L 12/25/19 14:22 Pulse Ox 95 12/25/19 14:22 - Orders/Labs/Meds Orders: Active Orders 24 hr Category Date Time Status Blood Glucose Check, Bedside [RC] ONETIME Care 12/25/19 15:48 Active Glucose [Blood Glucose Check, Bedside] [RC] ONETIME Care 12/25/19 13:59 Active UA RFX YESSICA AND CULT IF INDIC [URIN] Stat Lab 12/25/19 13:57 Ordered Sodium Chloride 0.9% [Saline Flush] Med 12/25/19 13:57 Active 10 ml FLUSH ASDIRECTED PRN Sodium Chloride 0.9% [Saline Flush] Med 12/25/19 13:57 Active 2.5 ml FLUSH ASDIRECTED PRN Saline Lock Insert [OM.PC] Stat Oth 12/25/19 13:57 Ordered Medication Orders Sodium Chloride (Saline Flush) 10 ml FLUSH ASDIRECTED PRN PRN Reason: Keep Vein Open Last Admin: 12/25/19 14:40 Dose: 10 ml Documented by: OLIVIA Sodium Chloride (Saline Flush) 2.5 ml FLUSH ASDIRECTED PRN PRN Reason: Keep Vein Open Last Admin: 12/25/19 14:40 Dose: 2.5 ml Documented by: OLIVIA Labs: Laboratory Tests 12/25/19 12/25/19 12/25/19 Range/Units 14:36 14:38 14:38 WBC 8.00 (4.0-11.0) K/uL RBC 5.22 (4.50-5.90) M/uL Hgb 15.8 (13.0-17.0) g/dL Hct 44.1 (38.0-50.0) % MCV 84.5 (80.0-98.0) fL MCH 30.3 (27.0-32.0) pg MCHC 35.8 (31.0-37.0) g/dL RDW Std Deviation 39.6 (28.0-62.0) fl RDW Coeff of Martinez 13 (11.0-15.0) % Plt Count 247 (150-400) K/uL MPV 10.00 (7.40-12.00) fL Neut % (Auto) 74.5 (48.0-80.0) % Lymph % (Auto) 16.6 (16.0-40.0) % [place] % (Auto) 7.6 (0.0-15.0) % Eos % (Auto) 0.8 (0.0-7.0) % Baso % (Auto) 0.5 (0.0-1.5) % Neut # (Auto) 6.0 H (1.4-5.7) K/uL Lymph # (Auto) 1.3 (0.6-2.4) K/uL [place] # (Auto) 0.6 (0.0-0.8) K/uL Eos # (Auto) 0.1 (0.0-0.7) K/uL Baso # (Auto) 0.0 (0.0-0.1) K/uL Nucleated RBC % 0.0 /100WBC Nucleated RBCs # 0 K/uL ABG pH (7.35-7.45) ABG pCO2 (35-45) mmHG ABG pO2 (75-100) mmHG ABG HCO3 (22-26) mEq/L ABG Total CO2 ABG Base Excess (-2.0-2.0) Sodium 134 L (136-148) mmol/L Potassium 3.8 (3.5-5.1) mmol/L Chloride 99 (98-107) mmol/L Carbon Dioxide 24.0 (21.0-32.0) mmol/L BUN 13 (7.0-18.0) mg/dL Creatinine 1.1 (0.8-1.3) mg/dL Est Cr Clr Drug Dosing 105.82 mL/min Estimated GFR (MDRD) > 60.0 ml/min Glucose 274 H (74-106) mg/dL POC Glucose 258 H (60-110) mg/dL Calcium 8.6 (8.5-10.1) mg/dL Total Bilirubin 0.8 (0.2-1.0) mg/dL AST 19 (15-37) IU/L ALT 36 (14-63) IU/L Alkaline Phosphatase 59 (46-116) U/L Creatine Kinase (26-308) U/L Total Protein 7.2 (6.4-8.2) g/dL Albumin 3.7 (3.4-5.0) g/dL Globulin 3.5 (2.6-4.0) g/dL Albumin/Globulin Ratio 1.1 (0.9-1.6) Ketones (NEG) 12/25/19 12/25/19 12/25/19 Range/Units 14:38 14:38 14:55 WBC (4.0-11.0) K/uL RBC (4.50-5.90) M/uL Hgb (13.0-17.0) g/dL Hct (38.0-50.0) % MCV (80.0-98.0) fL MCH (27.0-32.0) pg MCHC (31.0-37.0) g/dL RDW Std Deviation (28.0-62.0) fl RDW Coeff of Martinez (11.0-15.0) % Plt Count (150-400) K/uL MPV (7.40-12.00) fL Neut % (Auto) (48.0-80.0) % Lymph % (Auto) (16.0-40.0) % [place] % (Auto) (0.0-15.0) % Eos % (Auto) (0.0-7.0) % Baso % (Auto) (0.0-1.5) % Neut # (Auto) (1.4-5.7) K/uL Lymph # (Auto) (0.6-2.4) K/uL [place] # (Auto) (0.0-0.8) K/uL Eos # (Auto) (0.0-0.7) K/uL Baso # (Auto) (0.0-0.1) K/uL Nucleated RBC % /100WBC Nucleated RBCs # K/uL ABG pH 7.363 (7.35-7.45) ABG pCO2 44 (35-45) mmHG ABG pO2 67 L (75-100) mmHG ABG HCO3 25 (22-26) mEq/L ABG Total CO2 22.5 ABG Base Excess -0.5 (-2.0-2.0) Sodium (136-148) mmol/L Potassium (3.5-5.1) mmol/L Chloride (98-107) mmol/L Carbon Dioxide (21.0-32.0) mmol/L BUN (7.0-18.0) mg/dL Creatinine (0.8-1.3) mg/dL Est Cr Clr Drug Dosing mL/min Estimated GFR (MDRD) ml/min Glucose (74-106) mg/dL POC Glucose (60-110) mg/dL Calcium (8.5-10.1) mg/dL Total Bilirubin (0.2-1.0) mg/dL AST (15-37) IU/L ALT (14-63) IU/L Alkaline Phosphatase (46-116) U/L Creatine Kinase 57 (26-308) U/L Total Protein (6.4-8.2) g/dL Albumin (3.4-5.0) g/dL Globulin (2.6-4.0) g/dL Albumin/Globulin Ratio (0.9-1.6) Ketones NEGATIVE (NEG) Meds: Medications Generic Name Dose Route Start Last Admin Trade Name Freq PRN Reason Stop Dose Admin Sodium Chloride 10 ml 12/25/19 13:57 12/25/19 14:40 Saline Flush FLUSH 10 ml ASDIRECTED PRN Administration Keep Vein Open Sodium Chloride 2.5 ml 12/25/19 13:57 12/25/19 14:40 Saline Flush FLUSH 2.5 ml ASDIRECTED PRN Administration Keep Vein Open Discontinued Medications Generic Name Dose Route Start Last Admin Trade Name Freq PRN Reason Stop Dose Admin Sodium Chloride 1,000 mls @ 999 mls/hr 12/25/19 14:27 12/25/19 14:38 Normal Saline IV 12/25/19 15:27 999 mls/hr STAT ONE Administration Insulin Human Regular 5 unit 12/25/19 15:26 12/25/19 16:08 Novolin R SUBCUT 12/25/19 15:27 Not Given ONETIME ONE Protocol Morphine Sulfate 2 mg 12/25/19 14:30 12/25/19 14:40 Morphine IVPUSH 12/25/19 14:31 2 mg ONETIME ONE Administration Ondansetron HCl 4 mg 12/25/19 14:30 12/25/19 14:40 Zofran IVPUSH 12/25/19 14:31 4 mg ONETIME ONE Administration Departure - Departure Time of Disposition: 16:25 Disposition: Home, Self-Care 01 Clinical Impression: Diabetes mellitus type 1 Qualifiers: Diabetes mellitus complication status: with hyperglycemia Qualified Code(s): E10.65 - Type 1 diabetes mellitus with hyperglycemia - Discharge Information Instructions: Hyperglycemia, [id number] Referrals: Hiren Colunga [Primary Care Provider] - Forms: ED Department Discharge Additional Instructions: The following information is given to patients seen in the emergency department who are being discharged to home. This information is to outline your options for follow-up care. We provide all patients seen in our emergency department with a follow-up referral. The need for follow-up, as well as the timing and circumstances, are variable depending upon the specifics of your emergency department visit. If you don't have a primary care physician on staff, we will provide you with a referral. We always advise you to contact your personal physician following an emergency department visit to inform them of the circumstance of the visit and for follow-up with them and/or the need for any referrals to a consulting specialist. The emergency department will also refer you to a specialist when appropriate. This referral assures that you have the opportunity for follow-up care with a specialist. All of these measure are taken in an effort to provide you with optimal care, which includes your follow-up. Under all circumstances we always encourage you to contact your private physician who remains a resource for coordinating your care. When calling for follow-up care, please make the office aware that this follow-up is from your recent emergency room visit. If for any reason you are refused follow-up, please contact the [facility] Emergency Department at and asked to speak to the emergency department charge nurse. [facility] [address] [place] [id number] [place] [address] Thank you for choosing the [facility] emergency department in [place] for your medical needs today. It was a pleasure caring for you. You were seen in the emergency department for high blood sugar with type 1 diabetes 1. Continue to monitor your blood sugars closely. You declined admission today. If your symptoms should worsen, new symptoms develop or any of the signs and symptoms we discussed should arise please return to the emergency room or call 911 (if needed). 2. Drink plenty of fluids, small frequent sips. 3. Follow-up with your primary care provider as we discussed. Sepsis Event Note (ED) - Evaluation Sepsis Screening Result: No Definite Risk - Focused Exam Vital Signs: Vital Signs Temp Pulse Resp BP Pulse Ox 12/25/19 14:22 97.8 F 81 18 113/57 L 95 - My Orders Last 24 Hours: My Active Orders 12/25/19 13:57 UA RFX YESSICA AND CULT IF INDIC [URIN] Stat Sodium Chloride 0.9% [Saline Flush] 10 ml FLUSH ASDIRECTED PRN Sodium Chloride 0.9% [Saline Flush] 2.5 ml FLUSH ASDIRECTED PRN Saline Lock Insert [OM.PC] Stat 12/25/19 13:59 Glucose [Blood Glucose Check, Bedside] [RC] ONETIME 12/25/19 15:48 Blood Glucose Check, Bedside [RC] ONETIME - Assessment/Plan Last 24 Hours: My Active Orders 12/25/19 13:57 UA RFX YESSICA AND CULT IF INDIC [URIN] Stat Sodium Chloride 0.9% [Saline Flush] 10 ml FLUSH ASDIRECTED PRN Sodium Chloride 0.9% [Saline Flush] 2.5 ml FLUSH ASDIRECTED PRN Saline Lock Insert [OM.PC] Stat 12/25/19 13:59 Glucose [Blood Glucose Check, Bedside] [RC] ONETIME 12/25/19 15:48 Blood Glucose Check, Bedside [RC] ONETIME
[2019-12-25] MEDS ORDERED: Insulin Regular, Human 100 Units/ML 10 ML Vial SUBCUT ONE (15:26)
[2019-12-25 15:39] LABS: BLOOD UREA NITROGEN,BUN 13 mg/dL (7.0-18.0); CHLORIDE,CL 99 mmol/L (98-107); GLUCOSE RANDOM 274 mg/dL (74-106); POTASSIUM,K 3.8 mmol/L (3.5-5.1); SODIUM,NA 134 mmol/L (136-148)
== END 2019-12-25 16:44 | disposition home or self-care (01) ==
LOC: MW.ED 13:43
DX: E10.65 Type 1 diabetes mellitus with hyperglycemia (principal); F41.9 Anxiety disorder, unspecified; F17.210 Nicotine dependence, cigarettes, uncomplicated; Z79.899 Other long term (current) drug therapy
CPT/HCPCS: 36600; 80053; 82009; 82550; 82803; 82962; 85025; 96361; 96374; 96375; 99284; J2270; J2405; J7030; 99283; J1815-GY

== ENCOUNTER 2020-02-08 22:30 | Emergency (ER) | payer MEDICAID ==
[2020-02-08] MEDS ORDERED: Clindamycin HCl 150 MG Cap PO ONE (23:05)
[2020-02-08] MEDS ORDERED: Ketorolac 30 MG/ML SDV IM ONE (23:05)
[2020-02-08] MEDS ORDERED: Alum Hydrox/Mag Hydrox/Simeth 15 ML, Metoclopramide 5 MG, Lidocaine 2% 5 ML PO ONE ×3 (23:05)
[2020-02-08] MEDS ORDERED: Famotidine 20 MG Tab PO ONE (23:06)
--- NOTE | 2020-02-08 23:08 | EDM.PDOC ---
ED HPI GENERAL MEDICAL PROBLEM - General Chief Complaint: ENT Problem Stated Complaint: GUM PAIN Time Seen by Provider: 02/08/20 22:37 Source of Information: Reports: Patient - History of Present Illness INITIAL COMMENTS - FREE TEXT/NARRATIVE: History of present illness: 34-year-old male presenting with bilateral dental and jaw pain radiating up into the neck. Symptoms have been ongoing for days. He has been taking ibuprofen 800 mg twice or thrice daily and now starting to have some stomach discomfort as well and nausea. No fevers. He does report he has had many dental infections in the past and he has often failed penicillin and required clindamycin. Last antibiotic round was 3 months ago. He is working on getting dental follow-up to have his teeth extracted. Review of systems: As per history of present illness and below otherwise all systems reviewed and negative. Past medical history: As per history of present illness and as reviewed below otherwise noncontributory. Diabetes Surgical history: As per history of present illness and as reviewed below otherwise noncontributory. Social history: No reported history of drug or alcohol abuse. Daily tobacco Family history: As per history of present illness and as reviewed below otherwise noncontributory. Physical exam: GEN: no acute distress, well appearing HEENT: Atraumatic, normocephalic, mucous membranes moist, widespread dental decay with gum erythema diffusely surrounding the decayed teeth. No pharyngeal erythema, no airway swelling, no tonsillar enlargement or exudate. Neck: supple, nontender, trachea midline. Mildly tender lymphadenopathy. No neck stiffness or meningismus. Lungs: No respiratory distress. Heart: RRR Extremities: Atraumatic. Neurovascularly intact. Neuro: Awake, alert, oriented. Neuro Exam nonfocal. Skin: warm, dry, no lesions Diagnostics: Not indicated Therapeutics: Pepcid, GI cocktail, Toradol, clindamycin MDM: Impression: Plan: Definitive disposition and diagnosis as appropriate pending reevaluation and review of above. Treatments MANAGER ZONE: Reports: Acetaminophen Gums Pain Score (Numeric/FACES): 7 - Related Data Allergies Allergy/AdvReac Type Severity Reaction Status Date / Time No Known Allergies Allergy Verified 02/08/20 22:48 Home Meds: Home Meds Insulin Aspart [NovoLOG] 1 unit INJECT ASDIRECTED #100 pen 12/10/19 [Rx] Sertraline [Zoloft] 200 mg PO DAILY #30 tab 12/25/19 [Rx] Clindamycin HCl 300 mg PO Q6HR #28 capsule 02/08/20 [Rx] Past Medical History - Past Health History Medical/Surgical History: Denies Medical/Surgical History HEENT History: Reports: None Cardiovascular History: Reports: None Respiratory History: Reports: Asthma Other Respiratory History: childhood asthma Gastrointestinal History: Reports: None Genitourinary History: Reports: None Musculoskeletal History: Reports: None Neurological History: Reports: None Psychiatric History: Reports: Anxiety, Depression Endocrine/Metabolic History: Reports: Diabetes, Type I Other Endocrine/Metabolic History: Has insulin pump 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 Hematologic History: Reports: None Immunologic History: Reports: None Oncologic (Cancer) History: Reports: None Dermatologic History: Reports: None - Infectious Disease History Infectious Disease History: Reports: Chicken Pox - Past Surgical History Head Surgeries/Procedures: Reports: None HEENT Surgical History: Reports: None Cardiovascular Surgical History: Reports: None Respiratory Surgical History: Reports: None GI Surgical History: Reports: None Male Surgical History: Reports: Other (See Below) Other Male Surgeries/Procedures: undescended testicle,right Endocrine Surgical History: Reports: None Neurological Surgical History: Reports: None Musculoskeletal Surgical History: Reports: None Oncologic Surgical History: Reports: None Dermatological Surgical History: Reports: None Social & Family History - Family History Family Medical History: Noncontributory - Tobacco Use Smoking Status *Q: Current Every Day Smoker Years of Tobacco use: 20 Packs/Tins Daily: 1 - Caffeine Use Caffeine Use: Reports: None - Recreational Drug Use Recreational Drug Use: No ED ROS ENT - Review of Systems Review Of Systems: See Below (See HPI) ED EXAM, ENT - Physical Exam Exam: See Below (See HPI) Course - Vital Signs Text/Narrative:: Apparent dental infection and widespread dental decay/poor dentition. Has plans to extract his teeth and is working on outpatient dental follow-up. Will give clindamycin. No signs of meningitis or airway compromise or other ENT infection. No concerning signs or symptoms. Last Recorded V/S: Last Vital Signs Temp 97.0 F 02/09/20 00:15 Pulse 60 02/09/20 00:15 Resp 18 02/09/20 00:15 BP 98/55 L 02/09/20 00:15 Pulse Ox 97 02/09/20 00:15 - Orders/Labs/Meds Meds: Medications Discontinued Medications Generic Name Dose Route Start Last Admin Trade Name Radha PRN Reason Stop Dose Admin Clindamycin HCl 300 mg 02/08/20 23:05 02/08/20 23:18 Cleocin PO 02/08/20 23:06 300 mg ONETIME ONE Administration Al Hydroxide/Mg Hydroxide 15 0 ml 02/08/20 23:05 02/08/20 23:17 ml/ Metoclopramide HCl 5 mg/ PO 02/08/20 23:06 25 each Lidocaine HCl 5 ml ONETIME ONE Administration Famotidine 20 mg 02/08/20 23:06 02/08/20 23:18 Pepcid PO 02/08/20 23:07 20 mg ONETIME ONE Administration Ketorolac Tromethamine 30 mg 02/08/20 23:05 02/08/20 23:17 Toradol IM 02/08/20 23:06 30 mg ONETIME ONE Administration - Re-Assessments/Exams Free Text/Narrative Re-Assessment/Exam: 02/08/20 23:53 On reassessment, the patient is sleeping comfortably and in no acute distress. He reports his pain is improved although he does still feel mildly nauseated. I suspect he has some component of gastritis as he has been taking 800 mg of ibuprofen at a time. We discussed decreasing the ibuprofen dosing to 600 mg max and starting to take Pepcid [id number]. He agrees with this plan. Will electronically send clindamycin to the patient's preferred pharmacy. Departure - Departure Time of Disposition: 23:53 Disposition: Home, Self-Care 01 Clinical Impression: Dental decay, Jaw pain, Dental infection - Discharge Information Prescriptions: Clindamycin HCl 300 mg PO Q6HR #28 capsule Instructions: Preventive Dental Care, Adult, Acute Pain, Adult Referrals: Lizeth Shrestha NP [Primary Care Provider] - Forms: ED Department Discharge Additional Instructions: Please take the clindamycin prescription as prescribed. Please start to take Pepcid daily for your stomach discomfort and you may have some gastritis. Take no more than 600 mg of ibuprofen every 8 hours. It would be even better if you could avoid ibuprofen and take Tylenol instead as this will not irritate your stomach. Please follow-up with 1 of the dentist listed on the attached paperwork soon as possible as you will likely need to have some of the decayed teeth extracted. The following information is given to patients seen in the emergency department who are being discharged to home. This information is to outline your options for follow-up care. We provide all patients seen in our emergency department with a follow-up referral. The need for follow-up, as well as the timing and circumstances, are variable depending upon the specifics of your emergency department visit. If you don't have a primary care physician on staff, we will provide you with a referral. We always advise you to contact your personal physician following an emergency department visit to inform them of the circumstance of the visit and for follow-up with them and/or the need for any referrals to a consulting specialist. The emergency department will also refer you to a specialist when appropriate. This referral assures that you have the opportunity for follow-up care with a specialist. All of these measure are taken in an effort to provide you with optimal care, which includes your follow-up. Under all circumstances we always encourage you to contact your private physician who remains a resource for coordinating your care. When calling for follow-up care, please make the office aware that this follow-up is from your recent emergency room visit. If for any reason you are refused follow-up, please contact the [facility] Emergency Department at and asked to speak to the emergency department charge nurse. Sepsis Event Note (ED) - Evaluation Sepsis Screening Result: No Definite Risk - Focused Exam Vital Signs: Vital Signs Temp Pulse Resp BP Pulse Ox 02/09/20 00:15 97.0 F 60 18 98/55 L 97 02/08/20 22:44 97.3 F 63 18 106/66 97
[2020-02-09 00:17] VITALS: BP 98/55; PULSE 60
== END 2020-02-09 00:15 | disposition home or self-care (01) ==
LOC: MW.ED 22:30
DX: K04.7 Periapical abscess without sinus (principal); K02.9 Dental caries, unspecified; J45.909 Unspecified asthma, uncomplicated; F41.9 Anxiety disorder, unspecified; F32.9 Major depressive disorder, single episode, unspecified; F17.210 Nicotine dependence, cigarettes, uncomplicated; E10.9 Type 1 diabetes mellitus without complications; Z79.899 Other long term (current) drug therapy
CPT/HCPCS: 96372; 99283; A9270; J1885; 99282

== ENCOUNTER 2020-02-11 23:54 | Emergency (ER) | payer MEDICAID ==
[2020-02-12] MEDS ORDERED: Sodium Chloride 0.9% 2.5 ML Syringe FLUSH PRN (00:14)
[2020-02-12] MEDS ORDERED: Sodium Chloride 0.9% 10 ML Syringe FLUSH PRN (00:14)
[2020-02-12] MEDS ORDERED: Sodium Chloride 0.9% 1,000 ML IV ONE (00:14)
--- NOTE | 2020-02-12 00:17 | EDM.PDOC ---
ED HPI GENERAL MEDICAL PROBLEM - General Chief Complaint: General Stated Complaint: DEHYDARTION/FATIGUED Time Seen by Provider: 02/11/20 23:56 Source of Information: Reports: Patient History Limitations: Reports: No Limitations - History of Present Illness INITIAL COMMENTS - FREE TEXT/NARRATIVE: 34M PMHx IDDM, recurrent gingivitis/dental infections presents for generalized weakness/chills/concern for dental infection. Patient was seen here 3 days ago and dx with dental infection. Started on clindamycin. Notes still feeling unwell, 1x episode vomiting yesterday, denies fevers, denies chest pain or SOB, denies abdominal pain, notes mild sore throat unchanged since last ED visit. Notes compliance with clindamycin. Notes appointment with his primary medical doctor on Saturday and is trying to schedule an appointment with dentist to have all teeth pulled. - Related Data Allergies Allergy/AdvReac Type Severity Reaction Status Date / Time No Known Allergies Allergy Verified 02/12/20 00:05 Home Meds: Home Meds Insulin Aspart [NovoLOG] 1 unit INJECT ASDIRECTED #100 pen 12/10/19 [Rx] Sertraline [Zoloft] 200 mg PO DAILY #30 tab 12/25/19 [Rx] Clindamycin HCl 300 mg PO Q6HR #28 capsule 02/08/20 [Rx] Past Medical History - Past Health History Medical/Surgical History: Denies Medical/Surgical History HEENT History: Reports: None Cardiovascular History: Reports: None Respiratory History: Reports: Asthma Other Respiratory History: childhood asthma Gastrointestinal History: Reports: None Genitourinary History: Reports: None Musculoskeletal History: Reports: None Neurological History: Reports: None Psychiatric History: Reports: Anxiety, Depression Endocrine/Metabolic History: Reports: Diabetes, Type I Other Endocrine/Metabolic History: Has insulin pump 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 Hematologic History: Reports: None Immunologic History: Reports: None Oncologic (Cancer) History: Reports: None Dermatologic History: Reports: None - Infectious Disease History Infectious Disease History: Reports: Chicken Pox - Past Surgical History Head Surgeries/Procedures: Reports: None HEENT Surgical History: Reports: None Cardiovascular Surgical History: Reports: None Respiratory Surgical History: Reports: None GI Surgical History: Reports: None Male Surgical History: Reports: Other (See Below) Other Male Surgeries/Procedures: undescended testicle,right Endocrine Surgical History: Reports: None Neurological Surgical History: Reports: None Musculoskeletal Surgical History: Reports: None Oncologic Surgical History: Reports: None Dermatological Surgical History: Reports: None Social & Family History - Family History Family Medical History: Noncontributory - Tobacco Use Smoking Status *Q: Current Every Day Smoker Years of Tobacco use: 22 Packs/Tins Daily: 1 - Caffeine Use Caffeine Use: Reports: None - Recreational Drug Use Recreational Drug Use: No ED ROS GENERAL - Review of Systems Review Of Systems: Comprehensive ROS is negative, except as noted in HPI. ED EXAM, GENERAL - Physical Exam Exam: See Below Exam Limited By: No Limitations General Appearance: Alert, WD/WN, No Apparent Distress Ears: Normal External Exam Nose: Normal Inspection Throat/Mouth: Normal Inspection, Normal Lips, Normal Oropharynx, Normal Voice, No Airway Compromise, Other (poor dentition, erythema of b/l gums most prominent upper left mouth) Head: Atraumatic, Normocephalic Neck: Normal Inspection Respiratory/Chest: No Respiratory Distress, Lungs Clear, Normal Breath Sounds, No Accessory Muscle Use Cardiovascular: Normal Peripheral Pulses GI/Abdominal: Soft, Non-Tender Extremities: Normal Inspection Neurological: Alert Psychiatric: Normal Affect, Normal Mood Skin Exam: Warm, Dry, Intact, Normal Color Course - Vital Signs Last Recorded V/S: Last Vital Signs Temp 97.8 F 02/12/20 00:06 Pulse 55 L 02/12/20 00:06 Resp 14 02/12/20 00:06 BP 116/72 02/12/20 00:06 Pulse Ox 99 02/12/20 00:06 - Orders/Labs/Meds Orders: Active Orders 24 hr Category Date Time Status Sodium Chloride 0.9% [Normal Saline] 1,000 ml Med 02/12/20 00:14 Active IV .Bolus Sodium Chloride 0.9% [Saline Flush] Med 02/12/20 00:14 Active 10 ml FLUSH ASDIRECTED PRN Sodium Chloride 0.9% [Saline Flush] Med 02/12/20 00:14 Active 2.5 ml FLUSH ASDIRECTED PRN Saline Lock Insert [OM.PC] Stat Oth 02/12/20 00:14 Ordered Medication Orders Sodium Chloride (Normal Saline) 1,000 mls @ 999 mls/hr IV .Bolus ONE Stop: 02/12/20 01:14 Last Admin: 02/12/20 00:15 Dose: 999 mls/hr Documented by: ADRIAN Sodium Chloride (Saline Flush) 10 ml FLUSH ASDIRECTED PRN PRN Reason: Keep Vein Open Sodium Chloride (Saline Flush) 2.5 ml FLUSH ASDIRECTED PRN PRN Reason: Keep Vein Open Labs: Laboratory Tests 02/12/20 02/12/20 02/12/20 Range/Units 00:16 00:16 00:16 WBC 6.33 (4.0-11.0) K/uL RBC 4.60 (4.50-5.90) M/uL Hgb 13.8 (13.0-17.0) g/dL Hct 38.9 (38.0-50.0) % MCV 84.6 (80.0-98.0) fL MCH 30.0 (27.0-32.0) pg MCHC 35.5 (31.0-37.0) g/dL RDW Std Deviation 38.3 (28.0-62.0) fl RDW Coeff of Martinez 13 (11.0-15.0) % Plt Count 180 (150-400) K/uL MPV 8.50 (7.40-12.00) fL Neut % (Auto) 42.0 L (48.0-80.0) % Lymph % (Auto) 44.7 H (16.0-40.0) % Camp % (Auto) 10.4 (0.0-15.0) % Eos % (Auto) 2.4 (0.0-7.0) % Baso % (Auto) 0.5 (0.0-1.5) % Neut # (Auto) 2.7 (1.4-5.7) K/uL Lymph # (Auto) 2.8 H (0.6-2.4) K/uL Camp # (Auto) 0.7 (0.0-0.8) K/uL Eos # (Auto) 0.2 (0.0-0.7) K/uL Baso # (Auto) 0.0 (0.0-0.1) K/uL Lactate 0.7 (0.20-2.00) mmol/L Sodium 138 (136-148) mmol/L Potassium 3.5 (3.5-5.1) mmol/L Chloride 103 (98-107) mmol/L Carbon Dioxide 29.2 (21.0-32.0) mmol/L BUN 6 L (7.0-18.0) mg/dL Creatinine 0.8 (0.8-1.3) mg/dL Est Cr Clr Drug Dosing 145.50 mL/min Estimated GFR (MDRD) > 60.0 ml/min Glucose 209 H (74-106) mg/dL Calcium 8.6 (8.5-10.1) mg/dL Magnesium 1.8 (1.8-2.4) mg/dL Total Bilirubin 0.3 (0.2-1.0) mg/dL AST 23 (15-37) IU/L ALT 35 (14-63) IU/L Alkaline Phosphatase 51 (46-116) U/L Total Protein 6.8 (6.4-8.2) g/dL Albumin 3.8 (3.4-5.0) g/dL Globulin 3.0 (2.6-4.0) g/dL Albumin/Globulin Ratio 1.3 (0.9-1.6) Meds: Medications Generic Name Dose Route Start Last Admin Trade Name Freq PRN Reason Stop Dose Admin Sodium Chloride 1,000 mls @ 999 mls/hr 02/12/20 00:14 02/12/20 00:15 Normal Saline IV 02/12/20 01:14 999 mls/hr .Bolus ONE Administration Sodium Chloride 10 ml 02/12/20 00:14 Saline Flush FLUSH ASDIRECTED PRN Keep Vein Open Sodium Chloride 2.5 ml 02/12/20 00:14 Saline Flush FLUSH ASDIRECTED PRN Keep Vein Open - Re-Assessments/Exams Free Text/Narrative Re-Assessment/Exam: 02/12/20 00:19 Will get basic labs, will give IVFB. Offered COVID swab but patient declines. 02/12/20 00:50 Labs are unremarkable. Will d/c with instructions to continue clindamycin and to f/u with PMD on Saturday. Departure - Departure Time of Disposition: 00:50 Disposition: Home, Self-Care 01 Condition: Good Clinical Impression: Dental infection - Discharge Information Referrals: PCP,Not In Area [Primary Care Provider] - Forms: ED Department Discharge Additional Instructions: The following information is given to patients seen in the emergency department who are being discharged to home. This information is to outline your options for follow-up care. We provide all patients seen in our emergency department with a follow-up referral. The need for follow-up, as well as the timing and circumstances, are variable depending upon the specifics of your emergency department visit. If you don't have a primary care physician on staff, we will provide you with a referral. We always advise you to contact your personal physician following an emergency department visit to inform them of the circumstance of the visit and for follow-up with them and/or the need for any referrals to a consulting specialist. The emergency department will also refer you to a specialist when appropriate. This referral assures that you have the opportunity for follow-up care with a specialist. All of these measure are taken in an effort to provide you with optimal care, which includes your follow-up. Under all circumstances we always encourage you to contact your private physician who remains a resource for coordinating your care. When calling for follow-up care, please make the office aware that this follow-up is from your recent emergency room visit. If for any reason you are refused follow-up, please contact the [facility] Emergency Department at and asked to speak to the emergency department charge nurse. Please follow up with your primary care physician. If you do not have a primary care physician, see below: [facility] [address] [place] [id number] [facility] [address] [place] [id number] Sepsis Event Note (ED) - Evaluation Sepsis Screening Result: No Definite Risk - Focused Exam Vital Signs: Vital Signs Temp Pulse Resp BP Pulse Ox 02/12/20 00:06 97.8 F 55 L 14 116/72 99 - My Orders Last 24 Hours: My Active Orders 02/12/20 00:14 Sodium Chloride 0.9% [Normal Saline] 1,000 ml IV .Bolus Sodium Chloride 0.9% [Saline Flush] 10 ml FLUSH ASDIRECTED PRN Sodium Chloride 0.9% [Saline Flush] 2.5 ml FLUSH ASDIRECTED PRN Saline Lock Insert [OM.PC] Stat - Assessment/Plan Last 24 Hours: My Active Orders 02/12/20 00:14 Sodium Chloride 0.9% [Normal Saline] 1,000 ml IV .Bolus Sodium Chloride 0.9% [Saline Flush] 10 ml FLUSH ASDIRECTED PRN Sodium Chloride 0.9% [Saline Flush] 2.5 ml FLUSH ASDIRECTED PRN Saline Lock Insert [OM.PC] Stat
[2020-02-12 00:47] LABS: BLOOD UREA NITROGEN,BUN 6 mg/dL (7.0-18.0); CARBON DIOXIDE,CO2 29.2 mmol/L (21.0-32.0); CHLORIDE,CL 103 mmol/L (98-107); GLUCOSE RANDOM 209 mg/dL (74-106); POTASSIUM,K 3.5 mmol/L (3.5-5.1); SODIUM,NA 138 mmol/L (136-148)
[2020-02-12 01:08] VITALS: BP 106/54; PULSE 58
== END 2020-02-12 01:07 | disposition home or self-care (01) ==
LOC: MW.ED 23:54
DX: K04.7 Periapical abscess without sinus (principal); J45.909 Unspecified asthma, uncomplicated; F41.9 Anxiety disorder, unspecified; F32.9 Major depressive disorder, single episode, unspecified; E10.9 Type 1 diabetes mellitus without complications; F17.210 Nicotine dependence, cigarettes, uncomplicated; Z79.899 Other long term (current) drug therapy
CPT/HCPCS: 36415; 80053; 83605; 83735; 85025; 96360; 99284; J7030; 99283